=== PATIENT | female | born 1970 | race Caucasian/White ===

== ENCOUNTER 2020-04-19 17:45 | Outpatient (REF) | payer OTHER, SELFPAY ==
[2020-04-25 21:02] LABS: HPV mRNA E6/E7 Not Detected (Not Detected)
== END 2020-04-19 17:46 | disposition home or self-care (01) ==
LOC: HO.LNP 17:45
PROVIDERS: Visit Provider Advanced Practice Midwife
DX: Z01.419 Encounter for gynecological examination (general) (routine) without abnormal findings (principal); Z11.51 Encounter for screening for human papillomavirus (HPV); R23.2 Flushing
CPT/HCPCS: 87624; 87625; 88142

== ENCOUNTER 2020-05-26 08:35 | Outpatient (REF) | payer OTHER, SELFPAY ==
[2020-05-28 19:09] LABS: Follicle Stimulating Hormone 25.3 mIU/mL
== END 2020-05-26 08:36 | disposition home or self-care (01) ==
LOC: HO.LAB 08:35
PROVIDERS: PCP Internal Medicine; Visit Provider Advanced Practice Midwife
DX: R23.2 Flushing (principal)
CPT/HCPCS: 83001

== ENCOUNTER 2020-06-21 08:08 | Outpatient (REF) | payer OTHER, SELFPAY ==
[2020-06-21 11:41] LABS: Alanine Aminotransferase 19 U/L (0-31); Anion Gap 19 (12-20); Aspartate Amino Transferase 29 U/L (5-31); Blood Urea Nitrogen 7 mg/dL (9-16); Calcium 8.7 mg/dL (8.4-10.2); Carbon Dioxide 21 mmol/L (22-29); Chloride 104 mmol/L (96-108); Cholesterol 208 mg/dL; Estimated Glomerular Filt Rate > 60; Glucose Fasting 110 mg/dL (60-99); HDL Cholesterol 39 mg/dL; LDL Cholesterol Calculated 128 mg/dl; Potassium 4.8 mmol/l (3.3-5.1); Sodium 139 mmol/L (135-145); Triglycerides 206 mg/dL
[2020-06-21 12:02] LABS: Free T4 (Free Thyroxine) 1.18 ng/dL (0.71-1.85); Thyroid Stimulating Hormone 0.08 uIU/mL (0.32-4.0)
== END 2020-06-21 08:09 | disposition home or self-care (01) ==
LOC: HO.HMGCLDS 08:08
PROVIDERS: PCP Internal Medicine; Visit Provider Internal Medicine
DX: E03.9 Hypothyroidism, unspecified (principal); E66.01 Morbid (severe) obesity due to excess calories; E78.5 Hyperlipidemia, unspecified; Z00.01 Encounter for general adult medical examination with abnormal findings; I10 Essential (primary) hypertension
CPT/HCPCS: 80048; 80061; 84439; 84443; 84450; 84460

== ENCOUNTER 2020-06-25 15:36 | Outpatient (REF) | payer OTHER, SELFPAY ==
--- NOTE | 2020-06-25 | MM_ITS ---
EXAMINATION: MM SCREENING DIGITAL BREAST TOMOSYNTHESIS, BILATERAL CLINICAL INFORMATION: Screening. Asymptomatic. The lifetime risk of breast cancer based on the Tyrer-Cuzick Model is 7%. COMPARISON: Mammography: 01/21/2019, 12/15/2017 TECHNIQUE: Digital breast tomosynthesis is performed in both the craniocaudal and mediolateral oblique views along with computer-aided detection (CAD). Synthesized 2D images are generated from the tomosynthesis. Additional right exaggerated CC and bilateral MLO views are provided. FINDINGS: The breasts are almost entirely fatty (ACR BI-RADS breast composition Category a). There are no significant masses, abnormal calcifications, or other abnormalities. Background stromal and fibroglandular densities are similar to prior studies. No significant changes. MM/MM tomosynthesis screening BI IMPRESSION: No mammographic evidence of malignancy. ASSESSMENT: BI-RADS 1: Negative RECOMMENDATION: Routine annual mammography screening. This patient's information was entered into a reminder system with a target due date for their next mammogram.
== END 2020-06-25 15:37 | disposition home or self-care (01) ==
LOC: HO.MAMMO 15:36
PROVIDERS: PCP Internal Medicine; Visit Provider Internal Medicine
DX: Z12.31 Encounter for screening mammogram for malignant neoplasm of breast (principal)
CPT/HCPCS: 77063; 77067

== ENCOUNTER 2021-01-16 07:56 | Outpatient (REF) | payer OTHER, SELFPAY ==
[2021-01-16 12:17] LABS: Alanine Aminotransferase 10 U/L (0-31); Aspartate Amino Transferase 13 U/L (5-31); Cholesterol 171 mg/dL; Glucose Fasting 140 mg/dL (60-99); HDL Cholesterol 34 mg/dL; LDL Cholesterol Calculated 87 mg/dl; Triglycerides 252 mg/dL
[2021-01-16 12:42] LABS: Free T4 (Free Thyroxine) 1.26 ng/dL (0.71-1.85); Thyroid Stimulating Hormone 0.01 uIU/mL (0.32-4.0)
== END 2021-01-16 07:57 | disposition home or self-care (01) ==
LOC: HO.HMGCLDS 07:56
PROVIDERS: PCP Internal Medicine; Visit Provider Internal Medicine
DX: E03.9 Hypothyroidism, unspecified (principal); E66.01 Morbid (severe) obesity due to excess calories; E78.5 Hyperlipidemia, unspecified; R73.01 Impaired fasting glucose
CPT/HCPCS: 36415; 80061; 82947; 84439; 84443; 84450; 84460

== ENCOUNTER 2021-03-05 11:47 | Outpatient (REF) | payer OTHER, SELFPAY ==
[2021-03-05 14:03] LABS: Estimated Average Glucose 131 mg/dL; Hemoglobin A1c % 6.2 %
[2021-03-05 14:24] LABS: Glucose Fasting 76 mg/dL (60-99)
== END 2021-03-05 11:48 | disposition home or self-care (01) ==
LOC: HO.HMGCLDS 11:47
PROVIDERS: PCP Internal Medicine; Visit Provider Internal Medicine
DX: E66.01 Morbid (severe) obesity due to excess calories (principal); R73.01 Impaired fasting glucose
CPT/HCPCS: 36415; 82947; 83036

== ENCOUNTER → 2021-04-26 07:58 | Outpatient (BNVA) | payer OTHER, SELFPAY | PROVIDERS: PCP Internal Medicine; Visit Provider Obstetrics & Gynecology ==

== ENCOUNTER 2021-05-13 08:12 | Outpatient (REF) | payer OTHER, SELFPAY ==
[2021-05-13 14:38] LABS: CT PCR NOT DETECTED (Not Detect.); NG PCR NOT DETECTED (Not Detect.)
== END 2021-05-13 08:13 | disposition home or self-care (01) ==
LOC: HO.LAB 08:12
PROVIDERS: PCP Internal Medicine; Visit Provider Obstetrics & Gynecology
DX: Z30.09 Encounter for other general counseling and advice on contraception (principal)
CPT/HCPCS: 87491; 87591

== ENCOUNTER → 2021-05-23 08:25 | Outpatient (BNVA) | payer OTHER, SELFPAY | PROVIDERS: PCP Internal Medicine; Visit Provider Obstetrics & Gynecology ==

== ENCOUNTER → 2021-06-20 08:26 | Outpatient (BNVA) | payer OTHER, SELFPAY | PROVIDERS: PCP Internal Medicine; Visit Provider Obstetrics & Gynecology ==

== ENCOUNTER 2021-07-26 15:43 | Outpatient (REF) | payer OTHER, SELFPAY ==
--- NOTE | ~2021-07-26 | MM_ITS ---
EXAMINATION: MM SCREENING DIGITAL BREAST TOMOSYNTHESIS, BILATERAL CLINICAL INFORMATION: Screening. Asymptomatic. The lifetime risk of breast cancer based on the Tyrer-Cuzick Model is 7%. COMPARISON: Mammography: 06/25/2020, 01/21/2019, 12/15/2017 TECHNIQUE: Digital breast tomosynthesis is performed in both the craniocaudal and mediolateral oblique views along with computer-aided detection (CAD). Synthesized 2D images are generated from the tomosynthesis. FINDINGS: The breasts are almost entirely fatty (ACR BI-RADS breast composition Category a). There are no significant masses, abnormal calcifications, or other abnormalities. Background fibroglandular and stromal markings are similar to prior exams. No developing density. The axilla and skin contours are unremarkable. MM/MM tomosynthesis screening BI IMPRESSION: No mammographic evidence of malignancy. ASSESSMENT: BI-RADS 1: Negative RECOMMENDATION: Routine annual mammography screening. This patient's information was entered into a reminder system with a target due date for their next mammogram.
== END 2021-07-26 15:44 | disposition home or self-care (01) ==
LOC: HO.MAMMO 15:43
PROVIDERS: PCP Internal Medicine; Visit Provider Obstetrics & Gynecology
DX: Z12.31 Encounter for screening mammogram for malignant neoplasm of breast (principal)
CPT/HCPCS: 77063; 77067

== ENCOUNTER 2021-08-06 06:56 | Outpatient (REF) | payer OTHER, SELFPAY ==
[2021-08-06 08:12] LABS: Alanine Aminotransferase 20 U/L (0-31); Anion Gap 14 (12-20); Aspartate Amino Transferase 20 U/L (5-31); Blood Urea Nitrogen 8 mg/dL (9-16); Calcium 9.6 mg/dL (8.4-10.2); Carbon Dioxide 25 mmol/L (22-29); Chloride 107 mmol/L (96-108); Cholesterol 193 mg/dL; Estimated Glomerular Filt Rate > 60; Glucose Fasting 121 mg/dL (60-99); HDL Cholesterol 34 mg/dL; LDL Cholesterol Calculated 124 mg/dl; Potassium 4.2 mmol/L (3.3-5.1); Sodium 142 mmol/L (135-145); Triglycerides 177 mg/dL
[2021-08-06 08:36] LABS: Free T4 (Free Thyroxine) 0.87 ng/dL (0.71-1.85); Thyroid Stimulating Hormone 0.32 uIU/mL (0.32-4.0)
[2021-08-06 08:47] LABS: Estimated Average Glucose 134 mg/dL; Hemoglobin A1C 150.7243 umol/L; Hemoglobin A1c % 6.3 %
== END 2021-08-06 06:57 | disposition home or self-care (01) ==
LOC: HO.LAB 06:56
PROVIDERS: PCP Internal Medicine; Visit Provider Internal Medicine
DX: E03.9 Hypothyroidism, unspecified (principal); E66.01 Morbid (severe) obesity due to excess calories; E78.2 Mixed hyperlipidemia; R73.01 Impaired fasting glucose; I10 Essential (primary) hypertension
CPT/HCPCS: 36415; 80048; 80061; 83036; 84439; 84443; 84450; 84460

== ENCOUNTER 2022-05-21 07:24 | Outpatient (REF) | payer OTHER, SELFPAY ==
[2022-05-21 08:33] LABS: Alanine Aminotransferase 20 U/L (0-31); Anion Gap 18 (12-20); Aspartate Amino Transferase 19 U/L (5-31); Blood Urea Nitrogen 7 mg/dL (9-16); Calcium 9.4 mg/dL (8.4-10.2); Carbon Dioxide 21 mmol/L (22-29); Chloride 104 mmol/L (96-108); Cholesterol 185 mg/dL; Estimated Glomerular Filt Rate > 60; Glucose Fasting 112 mg/dL (60-99); HDL Cholesterol 35 mg/dL; LDL Cholesterol Calculated 117 mg/dl; Potassium 4.1 mmol/L (3.3-5.1); Sodium 139 mmol/L (135-145); Triglycerides 166 mg/dL
[2022-05-21 08:55] LABS: Free T4 (Free Thyroxine) 1.02 ng/dL (0.71-1.85); Thyroid Stimulating Hormone 0.35 uIU/mL (0.32-4.0); Vitamin D 25-OH Total 34.5 ng/mL (>30)
== END 2022-05-21 07:25 | disposition home or self-care (01) ==
LOC: HO.LAB 07:24
PROVIDERS: PCP Internal Medicine; Visit Provider Internal Medicine
DX: Z00.01 Encounter for general adult medical examination with abnormal findings (principal); E66.01 Morbid (severe) obesity due to excess calories; E78.2 Mixed hyperlipidemia; R73.01 Impaired fasting glucose; E03.9 Hypothyroidism, unspecified
CPT/HCPCS: 36415; 80048; 80061; 82306; 84439; 84443; 84450; 84460

== ENCOUNTER 2022-08-01 15:45 | Outpatient (REF) | payer OTHER, SELFPAY ==
--- NOTE | ~2022-08-01 | MM_ITS ---
EXAMINATION: MM SCREENING DIGITAL BREAST TOMOSYNTHESIS, BILATERAL CLINICAL INFORMATION: Screening. Asymptomatic. The lifetime risk of breast cancer based on the Tyrer-Cuzick Model is 7%. COMPARISON: Mammography: 07/26/2021, 06/25/2020, 01/21/2019 TECHNIQUE: Digital breast tomosynthesis is performed in both the craniocaudal and mediolateral oblique views along with computer-aided detection (CAD). Synthesized 2D images are generated from the tomosynthesis. Additional left MLO view is provided. FINDINGS: The breasts are almost entirely fatty (ACR BI-RADS breast composition Category a). Background stromal markings are stable. No developing density or architectural abnormality. There are no significant masses, abnormal calcifications, or other abnormalities. The axilla and skin contours are unremarkable. MM/MM tomosynthesis screening BI IMPRESSION: No mammographic evidence of malignancy. ASSESSMENT: BI-RADS 1: Negative RECOMMENDATION: Routine annual mammography screening. This patient's information was entered into a reminder system with a target due date for their next mammogram.
== END 2022-08-01 15:46 | disposition home or self-care (01) ==
LOC: HO.MAMMO 15:45
PROVIDERS: PCP Internal Medicine; Visit Provider Internal Medicine
DX: Z12.31 Encounter for screening mammogram for malignant neoplasm of breast (principal)
CPT/HCPCS: 77063; 77067

== ENCOUNTER → 2022-08-25 14:44 | Outpatient (BNVA) | payer OTHER, SELFPAY | PROVIDERS: PCP Internal Medicine; Visit Provider Nurse Practitioner Family | DX: Z13.89 Encounter for screening for other disorder (principal) ==

== ENCOUNTER 2022-10-28 09:22 | Outpatient (REF) | payer OTHER, SELFPAY ==
[2022-10-28 11:19] LABS: Alanine Aminotransferase 24 U/L (0-31); Anion Gap 14 (12-20); Aspartate Amino Transferase 19 U/L (5-31); Blood Urea Nitrogen 6 mg/dL (9-16); Calcium 9.3 mg/dL (8.4-10.2); Carbon Dioxide 24 mmol/L (22-29); Chloride 109 mmol/L (96-108); Cholesterol 185 mg/dL; Estimated Glomerular Filt Rate > 60; Glucose Fasting 113 mg/dL (60-99); HDL Cholesterol 31 mg/dL; LDL Cholesterol Calculated 108 mg/dl; Potassium 4.2 mmol/L (3.3-5.1); Sodium 143 mmol/L (135-145); Triglycerides 232 mg/dL
[2022-10-28 11:35] LABS: Estimated Average Glucose 143 mg/dL; Hemoglobin A1C 164.1739 umol/L; Hemoglobin A1c % 6.6 %
[2022-10-28 11:39] LABS: Free T4 (Free Thyroxine) 1.31 ng/dL (0.71-1.85); Thyroid Stimulating Hormone < 0.01 uIU/mL (0.32-4.0); Vitamin D 25-OH Total 40.2 ng/mL (>30)
== END 2022-10-28 09:23 | disposition home or self-care (01) ==
LOC: HO.LAB 09:22
PROVIDERS: PCP Internal Medicine; Visit Provider Internal Medicine
DX: E66.01 Morbid (severe) obesity due to excess calories (principal); E78.2 Mixed hyperlipidemia; R73.01 Impaired fasting glucose; E03.9 Hypothyroidism, unspecified
CPT/HCPCS: 36415; 80048; 80061; 82306; 83036; 84439; 84443; 84450; 84460

== ENCOUNTER 2022-11-03 13:04 | Outpatient (AMB) | payer OTHER, SELFPAY ==
--- NOTE | 2022-11-03 13:25 | A.OFFPC_ITS ---
Vital Signs 11/03/22 13:32 Height 4 ft 11 in Weight 216 lb 6 oz BMI 43.7 BP 126/90 H Blood Pressure Location Lt brachial Position Sitting Pulse 86 Pulse Source Pulse Oximeter Pulse Oximetry (%) 99 Oxygen Delivery Method Room Air Intake Visit Reasons: 6 month follow up Intake Note: Pt is here today for her 6 month f/u Allergies penicillin V Allergy (Intermediate, Verified 06/11/23 13:18) hives Sulfa (Sulfonamide Antibiotics) Allergy (Intermediate, Verified 06/11/23 13:18) hives Medication List - Last Reconciled 11/03/22 by Lizeth Andrew MD bisacodyl (Dulcolax (bisacodyl)) 10 mg (2 x 5 mg) PO ONCE 1 day cholecalciferol (vitamin D3) 600 units PO DAILY levonorgestrel (Mirena) intrauterine levothyroxine 100 mcg PO QAM loratadine (Claritin) 10 mg PO DAILY ziqnblla-iwp-cgth-FA-lutein 8 mg iron-400 mcg-300 mcg (Multivitamin Women 50 Plus) 1 tab PO DAILY omeprazole 20 mg PO DAILY polyethylene glycol 3350 (Miralax) 238 grams PO ONCE simvastatin 40 mg PO BEDTIME Tobacco use date assessed: 11/03/22 HPI 6 month follow up HPI Details 52-year-old lady with dyslipidemia hypot hyroidism, allergic rhinitis, here today for her follow-up. She has been feeling well, with no complaints at present time except for occasional nasal congestion for which she takes loratadine as needed. She will be going on a cruise later on this month and is requesting a prescription for the transderm scopolamine patch to use as needed for motion sickness. [facility] Medical History Rhinitis Mixed dyslipidemia Impaired fasting glucose Encounter for well woman exam with routine gynecological exam Rosacea Morbid obesity Hypothyroidism (acquired) GERD (gastroesophageal reflux disease) Surgical History Hx of colonoscopy Hx of endoscopy Family History Mother Diabetes Paternal Grandfather Brain cancer Paternal Grandmother Lung cancer Son Asthma Social History Housing: House Alcohol intake: current Patient Tobacco Use Status: Former Tobacco user Tobacco use type: Cigarette e-Cigarette/Vaping Use: Never Used service: No Current occupational status: employed Sexual orientation: Straight/Heterosexual Gender identity: Female Cognitive needs: No Hearing needs: No Vision needs: No Female Reproductive History Menstrual Age of Menarche: 12 Questionnaire PHQ-9 Over the last 2 weeks, how often have you been bothered by any of the following problems? 1. Little interest or pleasure in doing things: not at all 2. Feeling down, depressed, or hopeless: not at all 3. Trouble falling or staying asleep, or sleeping too much: not at all 4. Feeling tired or having little energy: several days 5. Poor appetite or overeating: not at all 6. Feeling bad about yourself - or that you are a failure or have let yourself or your family down: not at all 7. Trouble concentrating on things, such as reading the newspaper or watching television: not at all 8. Moving or speaking so slowly that other people could have noticed. Or the opposite - being so fidgety or restless that you have been moving around a lot more than usual: not at all 9. Thoughts that you would be better off or of hurting yourself in some way: not at all Total score: 1 Depression Screening Interpretation: Negative 23122 - PHQ-9 Billing: Yes Source: Developed by Drs. Stanislav Rodriguez, Em Figueroa, Moreno Sawant and colleagues, with an educational letty from [employer]. Thrive Questionnaire Declines Thrive assessment: No Date Thrive assessed: 11/03/22 I am a: Patient What is your living situation today?: I have a steady place to live Within the past 12 months, did the food you bought not last and you didn't have the money to get more?: Never true Within the past 12 months, did you worry whether your food would run out before you got money to buy more?: Never true Do you have trouble paying for medicines?: No Do you have trouble getting transportation to medical appointments?: No Do you have trouble paying your heating and electricity bill?: No Do you have trouble taking care of your child, family member or friend?: No Do you have trouble with day-to-day activities such as bathing, preparing meals, shopping, managing finances, etc.?: No Are you currently unemployed and looking for a job?: No Are you interested in more education?: No AUDIT C Alcohol Use Questionnaire (AUDIT-C) 1. How often do you have a drink containing alcohol?: Monthly or less 2. How many drinks containing alcohol do you have on a typical day when you are drinking?: 1 or 2 3. How often do you have six or more drinks on one occasion?: Never Total Score: 1 REYNALDO-7 AMB Questionnaire REYNALDO-7 Date REYNALDO - 7 assessed: 11/03/22 Feeling nervous, anxious, or on edge: 0 = Not at all Not being able to stop or control worryin = Not at all Worrying too much about different things: 0 = Not at all Trouble relaxin = Not at all Being so restless that it is hard to sit still: 0 = Not at all Becoming easily annoyed or irritable: 1 = Several days Feeling afraid as if something awful might happen: 0 = Not at all Total REYNALDO-7 score (0-4 normal; 5-9 mild; 10-14 moderate; 15-21 severe): 1 Source: Developed by Drs. Stanislav Rodriguez, Em Figueroa, Moreno Sawant and colleagues, with an educational letty from [employer]. REYNALDO-7 Assessment Billing REYNALDO-7 Assessment Tool: REYNALDO-7 Assessment 33992 Review of Systems Const Denies body aches, Denies fatigue, Denies fever(s), Denies headache(s) and Denies weakness Eyes Details: Sees Dr. Azul Denies change in vision ENT Denies headache(s), Denies nasal discharge and Denies sore throat Card Denies chest pain, Denies lightheadedness, Denies palpitations and Denies dyspnea Resp Denies chest congestion, Denies cough, Denies dyspnea and Denies wheezing GI Denies abdominal pain, Denies change in bowel habits and Denies heartburn Details: Follows with [facility] for her routine Pap and pelvic exam Denies urinary frequency, Denies dysuria and Denies urinary urgency Musc Reports no additional complaints Skin/Breast Denies lesions and Denies rash Neuro Denies headache(s) and Denies weakness Psych Reports as per HPI Endo Denies fatigue, Denies polydipsia, Denies polyuria and Denies palpitations Abundio/Lymph Denies easy bruising Aller/Immun Denies seasonal rhinorrhea and Denies wheezing Physical exam (Primary Care) Vital Signs: Last Vital Signs Pulse 86 11/03/22 13:32 BP 126/90 H 11/03/22 13:32 Pulse Ox 99 11/03/22 13:32 Oxygen Delivery Method Room Air 11/03/22 13:32 BMI result Body Mass Index 43.7 BMI Assessment/Plan discussion: High BMI High, discussed plan: lifestyle, weight reduction, dietary and physical activity Tobacco/Smoking Status: Tobacco use Status Tobacco use date assessed 11/03/22 11/03/22 13:36 Patient Tobacco Use Status Never used Tobacco 11/03/22 13:27 e-Cigarette/Vaping Use Never Used 11/03/22 13:27 PHQ-9: PHQ-9 Score PHQ-9: Total score 1 11/03/22 14:26 Depression Screening Interpretation: Negative Thrive Assessment: Date of Thrive Assessment Date Thrive assessed 11/03/22 11/03/22 13:36 Const General: comfortable and no acute distress Nutritional Appearance: obese morbidly obese Orientation/consciousness: patient oriented x3 HENMT Other: Moist oral mucosa, normal oropharynx, no nasal discharge Eyes General: appearance normal, both eyes and all related structures Neck Other: Supple, no lymphadenopathy, thyroid gland nonpalpable Chest Other: Pendulous breasts, no mass palpated , no nipple discharge Resp Effort & Inspection: normal respiratory effort and able to speak in complete sentences Auscultation: clear to auscultation bilaterally Cardio Other: S1-S2 present regular rate and rhythm GI Palpation (GI): Soft to palpation, nontender, no guarding and no masses Auscultation: normal bowel sounds Skin General skin exam: no rashes or lesions noted Neuro General: patient oriented x3, gait normal, moves all extremities, Normal light touch and pain sensation, no focal motor deficits and CN's II-XI intact bilaterally Extrem General: Yes full ROM, Yes no joint enlargement, Yes no pedal edema, Yes no calf tenderness and Yes normal gait Psych Appearance: grossly normal and well kempt Mental Status: mental status grossly normal Speech and movement: Normal speech and movement present Affect: normal affect Attitude: cooperative Thought process: Normal thought process present Immunizations pneumoc 20-jamaal conj-dip cr(PF) 0.5 mL IM syringe Performing Provider: Lizeth Andrew MD Performing Location: [facility] [place] [facility] Administered by: Coty Kruse CMA on 11/03/22 14:27 Dose Route Admin Location Dispensed Lot Number Expiration Date NDC Arabic Linguist 0.5 mL IM Left Deltoid 0.5 mL [id number] 02/10/24 6797-7978-21 Tour Desk/Widbook VIS Given Date VIS Provided VIS Publication Date 11/03/22 Single Vaccine 21 Eligibility Eligibility Date Funding Source Not VFC Eligible 11/03/22 Private Results Reviewed Results Reviewed: RUN: 11/03/22 1358 PAGE 1 [facility] [address] [place] [id number] Cable Rigger: Wesly France M.D. Specimen Inquiry Name: Gayle Brownlee Age/Sex: 51/F : 1970 Unit#: [id number] Attend Dr: Lizeth Andrew MD Re10/28/22 Status: DEP REF [facility] Disch: SPEC : [id number] ALEX: 10/28/22 STATUS: COMP REQ : [id number] RECD: 10/28/[address]: Lizeth Andrew MD COMP: 10/28/221139 ENTERED: 10/28/[address]: ORDERED: Met Prof Fast, AST, ALT, Lipid Panel, Vitamin D 25-OH, Free T4, TSH Test Result Flag Reference Site Sodium 143 135-145 mmol/L Potassium 4.2 3.3-5.1 mmol/L CL 109 H 96-108 mmol/L CO2 24 22-29 mmol/L Gap 14 12-20 BUN 6 L 9-16 mg/dL Creat 0.62 0.5-1.4 mg/dL EGFR > 60 NOTE: For -[place] individuals, multiply the result by 1.210. Chronic Kidney Disease: Estimated GFR < 60 mL/mi n/1.73m2 Severe Kidney Disease: Estimated GFR < 15 mL/min/1.73m2 FBS 113 H 60-99 mg/dL A fasting glucose from 100-125 mg/dl is considered impaired (pre-diabetes). CA 9.3 8.4-10.2 mg/dL AST (GOT) 19 5-31 U/L ALT (GPT) 24 0-31 U/L Triglyceride 232 mg/dL Desirable Triglyceride: less than 150 mg/dL Borderline High Triglyceride 150-199 mg/dL High Triglyceride: 200-499 mg/dL Very High Triglyceride: greater than or equal to 5OO mg/dL Chol 185 mg/dL Desirable Cholesterol: less than 200 mg/dL Borderline High Cholesterol: 200-239 mg/dL High Cholesterol: greater than 239 mg/dL LDL Calculated 108 mg/dl Desirable LDL: less than 100 mg/dL Near Optimal/Above Optimal LDL: 110-129 mg/dL Borderline High LDL: 130-159 mg/dL High LDL: 160-189 mg/dL Very High LDL: greater than or equal to 190 mg/dL HDL 31 mg/dL Desirable HDL: greater than 40 mg/dL Note: This HDL assay may give artificially low results in patients with liver disease. Vit D 25-OH Tot 40.2 >30 ng/mL Health Based Reference Values* < 20 ng/mL Deficient 20-30 ng/mL Insufficient > 30 ng/mL Sufficient *Heron BERG. N Engl J Med. 2007;357:266-280 Care must be taken in interpreting Vitamin D results from different laboratories and methodologies. Published data demonstrated that results from patients undergoing hemodialysis may show a negative bias when tested with various automated 25-OH vitamin D assays when compared to LC-MS/MS. When testing samples from patients whose predominant form of Vitamin D is Vitamin D2, such as patients receiving Vitamin D2 supplementation, results that are subtherapeutic should be confirmed with another method such as LC-MS/MS. Free T4 1.31 0.71-1.85 ng/dL TSH 3rd Gen. < 0.01 L 0.32-4.0 uIU/mL Laboratory Tests 10/28/22 09:39 Estimat Average Glucose 143 Hemoglobin A1c % 6.6 Assessment and Plan Assessment & Plan (1) Mixed dyslipidemia: Code(s): E78.2 - Mixed hyperlipidemia Plan: Reviewed recent fasting lipid profile with patient with levels at goal except for elevated triglycerides. . Continue with simvastatin 40 mg at bedtime , in addition to adherence to low-cholesterol diet and regular exercise, at least 30 minutes 3 to 4 times a week. Advised patient to make healthy food choices, eat more fruits, vegetables, whole grains, wild caught fish and low-fat dairy. Limit amount of meat and fried or fatty food products, as well as processed foods and fast foods. Follow-up scheduled with repeat fasting lipid panel in 6 months. (2) Impaired fasting glucose: Code(s): R73.01 - Impaired fasting glucose Plan: Your fasting blood sugars was elevated above 100 mg/dL. Impaired glucose metabolism O2 at risk for developing diabetes mellitus type 2, as well as heart attack and stroke later on. Lifestyle changes at just weight loss, healthy eating habits, and regular exercise are important, and can prevent the progression to diabetes (3) Morbid obesity: Code(s): E66.01 - Morbid (severe) obesity due to excess calories Plan: Discussed need to increase activity and recommended focusing on improving your health instead of dieting. : Eat Mediterranean diet, limit foods high in fat, sugar, and calories, eat slowly, pay attention to portion sizes, plan your meals ahead of time, start regular physical activity 150 minutes of moderate intensity exercise or 90 minutes/week of vigorous exercise and increase water intake. (4) Hypothyroidism (acquired): Code(s): E03.9 - Hypothyroidism, unspecified Plan: Thyroid levels are within normal limits, continued on current dose of levothyroxine at 100 mcg daily in a.m.. Recheck thyroid levels again in 6 months (5) Rhinitis: Code(s): J31.0 - Chronic rhinitis Qualifiers: Rhinitis type: unspecified Qualified Code(s): J31.0 - Chronic rhinitis Plan: Continued on loratadine 10 mg daily (6) Hx of motion sickness: Code(s): Z87.898 - Personal history of other specified conditions Plan: Prescription sent for scopolamine patch, to use as directed Orders: Orders Alanine Aminotransferase 6 Months E78.2 - Mixed hyperlipidemia, R73.01 - Impaired fasting glucose, E66.01 - Morbid (severe) obesity due to excess calories, E03.9 - Hypothyroidism, unspecified Microalbumin, Random (w Creat) 6 Months E78.2 - Mixed hyperlipidemia, R73.01 - Impaired fasting glucose, E66.01 - Morbid (severe) obesity due to excess calories, E03.9 - Hypothyroidism, unspecified Basic Metabolic Panel Fasting 6 Months E78.2 - Mixed hyperlipidemia, R73.01 - Impaired fasting glucose, E66.01 - Morbid (severe) obesity due to excess calories, E03.9 - Hypothyroidism, unspecified Vitamin D 25-OH Total 6 Months E78.2 - Mixed hyperlipidemia, R73.01 - Impaired fasting glucose, E66.01 - Morbid (severe) obesity due to excess calories, E03.9 - Hypothyroidism, unspecified Aspartate Amino Transferase 6 Months E78.2 - Mixed hyperlipidemia, R73.01 - Impaired fasting glucose, E66.01 - Morbid (severe) obesity due to excess calories, E03.9 - Hypothyroidism, unspecified Hemoglobin A1c 6 Months E78.2 - Mixed hyperlipidemia, R73.01 - Impaired fasting glucose, E66.01 - Morbid (severe) obesity due to excess calories, E03.9 - Hypothyroidism, unspecified Lipid Panel 6 Months E78.2 - Mixed hyperlipidemia, R73.01 - Impaired fasting glucose, E66.01 - Morbid (severe) obesity due to excess calories, E03.9 - Hypothyroidism, unspecified Thyroid Stimulating Hormone 6 Months E78.2 - Mixed hyperlipidemia, R73.01 - Impaired fasting glucose, E66.01 - Morbid (severe) obesity due to excess calories, E03.9 - Hypothyroidism, unspecified Free T4 (Free Thyroxine) 6 Months E03.9 - Hypothyroidism, unspecified, E78.2 - Mixed hyperlipidemia, R73.01 - Impaired fasting glucose, E66.01 - Morbid (severe) obesity due to excess calories Pneumococcal 20 Immunization 11/03/22 Z23 - Encounter for immunization Medications: Refilled scopolamine base 1 patch transdermal Q3D PRN 4 ea 0RF nausea and vomiting Coding Level of Care Code Est Pt Level 4 (15105) Diagnoses Mixed dyslipidemia E78.2 Impaired fasting glucose R73.01 Morbid obesity E66.01 Hypothyroidism (acquired) E03.9 Rhinitis, unspecified type J31.0 Rhinitis type: unspecified Hx of motion sickness Z87.898 Additional Codes REYNALDO-7 Assessment Billing - REYNALDO-7 Assessment Tool: REYNALDO-7 Assessment [id number] ([id number])
[2022-11-03 13:32] VITALS: BP 126/90; PULSE 86; O2SAT 99; BMI 43.7
== END 2022-11-03 14:27 | disposition home or self-care (01) ==
LOC: HO.HMGC 13:04
PROVIDERS: PCP Internal Medicine; Visit Provider Internal Medicine
DX: E78.2 Mixed hyperlipidemia (principal); E66.01 Morbid (severe) obesity due to excess calories; Z68.41 Body mass index [BMI] 40.0-44.9, adult; Z23 Encounter for immunization; R73.01 Impaired fasting glucose; E03.9 Hypothyroidism, unspecified; J31.0 Chronic rhinitis; Z87.898 Personal history of other specified conditions
CPT/HCPCS: 90471; 90677; 99214

== ENCOUNTER 2023-03-09 12:10 | Day surgery (SDC) | payer OTHER, SELFPAY ==
[2023-03-05 10:50] VITALS: BMI 43.6
--- NOTE | 2023-03-06 11:12 | HO.ANESPROP2 ---
Documented by User: Melba Allen NP 03/06/23 11:14 HPI - Anesthesia Eval Consult details Narrative: 52yo F for Colonoscopy PMFSH Active Problems Active Problems: All Active Problems (Updated 11/03/22 @ 14:20 by Lizeth Andrew MD) Rhinitis (Acute) Mixed dyslipidemia (Acute) Impaired fasting glucose (Acute) Morbid obesity (Acute) Hypothyroidism (acquired) (Acute) Annual visit for general adult medical examination with abnormal findings (Acute) Hot flashes (Acute) Past Medical History Medical History Encounter for well woman exam with routine gynecological exam GERD (gastroesophageal reflux disease) Hypothyroidism (acquired) Impaired fasting glucose Mixed dyslipidemia Morbid obesity Rhinitis Rosacea Family History Family History Mother Diabetes Paternal Grandfather Brain cancer Paternal Grandmother Lung cancer Son Asthma Surgical History Surgical History Hx of endoscopy Social History Social History Housing: House Alcohol intake: current Patient Tobacco Use Status: Former Tobacco user Tobacco use type: Cigarette e-Cigarette/Vaping Use: Never Used Use of substances other than those prescribed or required for medical reasons: No Are you DNR?: No Advance Directives: No Advance Directives Information Provided: Yes service: No Current occupational status: employed Sexual orientation: Straight/Heterosexual Gender identity: Female Cognitive needs: No Hearing needs: No Vision needs: No Meds Allergies Allergy/AdvReac Type Severity Reaction Status Date / Time penicillin V Allergy Intermediate hives Verified 03/05/23 10:49 Sulfa (Sulfonamide Allergy Intermediate hives Verified 03/05/23 10:49 Antibiotics) Home Medications Medication Instructions Recorded Confirmed Last Taken Type loratadine 10 mg tablet (Claritin) 10 mg PO DAILY 04/19/20 03/05/23 Unknown History cholecalciferol (vitamin D3) 25 600 unit PO DAILY 08/12/21 03/05/23 Unknown History mcg (1,000 unit) tablet levonorgestrel 21 mcg/24 hours (8 intrauterine 08/12/21 11/03/22 Unknown History yrs) 52 mg intrauterine device (Mirena) leolkkug-xsvs-nbye 8 mg-folic 400 1 tab PO DAILY 06/09/22 03/05/23 Unknown History mcg-K 50 mcg-lutein 300 mcg tablet (Multivitamin Women 50 Plus) Exam Exam Date and Time: March 06, 2023 1112 Height,Weight and Vital Signs: Height 4 ft 11 in Weight 97.976 kg Pertinent Lab Results Pertinent Lab Results: Laboratory Tests 10/28/22 09:39 Sodium 143 Potassium 4.2 Chloride 109 H Carbon Dioxide 24 BUN 6 L Creatinine 0.62 Assessment and Plan Assessment Anesthesia Assessment: Chart Reviewed Documented by User: Melinda Noble MD 03/09/23 13:39 PMFSH Active Problems Active Problems: All Active Problems (Updated 03/09/23 @ 13:36 by Melinda Noble MD) Rhinitis (Acute) Mixed dyslipidemia (Acute) Impaired fasting glucose (Acute) Morbid obesity (Acute)BMI 43.6 Hypothyroidism (acquired) (Acute) Annual visit for general adult medical examination with abnormal findings (Acute) Hot flashes (Acute) Past Medical History Medical History Encounter for well woman exam with routine gynecological exam GERD (gastroesophageal reflux disease) Hypothyroidism (acquired) Impaired fasting glucose Mixed dyslipidemia Morbid obesity Rhinitis Rosacea Family History Family History Mother Diabetes Paternal Grandfather Brain cancer Paternal Grandmother Lung cancer Son Asthma Surgical History Surgical History Hx of endoscopy Social History Social History Housing: House Alcohol intake: current Patient Tobacco Use Status: Former Tobacco user Tobacco use type: Cigarette e-Cigarette/Vaping Use: Never Used Use of substances other than those prescribed or required for medical reasons: No Are you DNR?: No Advance Directives: No Advance Directives Information Provided: Yes service: No Current occupational status: employed Sexual orientation: Straight/Heterosexual Gender identity: Female Cognitive needs: No Hearing needs: No Vision needs: No Meds Allergies Allergy/AdvReac Type Severity Reaction Status Date / Time penicillin V Allergy Intermediate hives Verified 03/05/23 10:49 Sulfa (Sulfonamide Allergy Intermediate hives Verified 03/05/23 10:49 Antibiotics) Home Medications Medication Instructions Recorded Confirmed Last Taken Type loratadine 10 mg tablet (Claritin) 10 mg PO DAILY 04/19/20 03/05/23 Unknown History cholecalciferol (vitamin D3) 25 600 unit PO DAILY 08/12/21 03/05/23 Unknown History mcg (1,000 unit) tablet levonorgestrel 21 mcg/24 hours (8 intrauterine 08/12/21 11/03/22 Unknown History yrs) 52 mg intrauterine device (Mirena) nfgyxnyt-pvxf-hapr 8 mg-folic 400 1 tab PO DAILY 06/09/22 03/05/23 Unknown History mcg-K 50 mcg-lutein 300 mcg tablet (Multivitamin Women 50 Plus)
[2023-03-09 12:26] VITALS: BP 169/117; PULSE 111; RESP 16; TEMP 36.7; O2SAT 97
[2023-03-09 12:38] VITALS: BP 143/91; PULSE 106
[2023-03-09] MEDS: Lactated Ringers 1,000 ML 100 ML IVCONT (12:44)
--- NOTE | 2023-03-09 14:08 | MHC.SHP ---
Pre-Procedural Eval Section A Date of Service: 03/09/23 The patient is an INPATIENT: No The History & Physical has been completed within 30 days and I have reviewed it.: No Section B Chief Complaint: screening Relevant Family History (Specify if Yes): No Relevant Social History: None Present Medications: see Short Stay Collaborative assessment Medical History: Significant History (GERD (gastroesophageal reflux disease) Hypothyroidism (acquired) Impaired fasting glucose Mixed dyslipidemia Morbid obesity Rosacea) History of Previous Operations: Relevant previous surgery/procedure and date(s) (Hx of endoscopy) Allergies: Allergies Allergy/AdvReac Type Severity Reaction Status Date / Time penicillin V Allergy Intermediate hives Verified 03/05/23 10:49 Sulfa (Sulfonamide Allergy Intermediate hives Verified 03/05/23 10:49 Antibiotics) Review of Systems Sugical H&P ROS: Negative: Constitution, Cardiovascular, Respiratory and Gastrointestinal Exam Surgical H&P Exam: Normal: Heart, Normal: Lungs, Normal: Extremities and Normal: Abdomen Plan Diagnosis/Plan: Unchanged I have reviewed the history and physical and performed a pertinent physical examination on my patient. No changes have occurred unless specified. Time Spent With Patient Time: Total time managing care of this patient today ____ minutes.
--- NOTE | 2023-03-09 14:10 | P.OP_ITS ---
Operative Note Operative Note Date of Service: 03/09/23 Narrative: COLONOSCOPY TILL CECUM WITH BIOPSIES Pre-op diagnosis: Colon cancer screening Post-op diagnosis:? Colon polyps, diverticulosis, hemorrhoids, aphthoid ulcers in the right colon Endoscopist:? Dajuan Ocasio MD Anesthesia:?MAC Consent: Indications for the procedure and potential complications of bleeding, perforation, reaction to medications and missed diagnosis were discussed with the patient and informed consent was obtained. Instrument: Olympus PCF H 190 L variable stiffness pediatric colonoscope Monitoring: Vital signs and clinical assessment, intermittent blood pressure monitoring, continuous EKG monitoring, Pulse oximetry and Carbon Dioxide monitoring were done throughout the procedure. Please see anesthesia flowsheet. Colon withdrawl time was 22 minutes. Procedure: The patient was placed in the left lateral decubitis position and pre-procedure medications were administered. After a digital rectal examination of the ano-rectum, the video colonoscope was inserted into the rectum and advanced through the colon to the cecum. The colonoscope was slowly withdrawn in a retrograde panoramic fashion and the colon mucosa was carefully examined including a retroflexed view of the rectum. Findings and interventions are described below. Procedure Difficulty: Without difficulty Findings: Terminal Ileum: Distal 5 - 6 cms was examined and appeared normal Cecum: 2-3 mm aphthoid ulcers in the cecum and proximal AC - biopsies were obtained Ascending Colon: 2-3 mm aphthoid ulcers in the cecum and proximal AC - biopsies were obtained Transverse Colon: Normal Descending Colon: Normal Sigmoid Colon: A 2-3 mm diminutive appearing polyp in the distal sigmoid colon - removed with cold biopsy Moderate diverticulosis Rectum: A few 3-5 mm diminutive appearing polyps - one removed with a cold biopsy Ano-rectum: Moderate internal hemorrhoids Colon preparation: Good after some irrigation Impression and Post Procedure Diagnosis: Colonoscopy Findings: Two diminutive appearing polyps removed 2-3 mm aphthoid ulcers in the cecum and proximal AC - biopsies were obtained Moderate diverticulosis seen in the sigmoid colon Moderate hemorrhoids on retroflexed exam. Plan: Await pathology results Patient has an appointment on 03/23/23 in the GI Clinic with Priscilla Garner FNP- [facility]. Repeat Colonoscopy interval based on path results - in 5 years if polyps are adenomatous and 10 years if polyps are hyperplastic. Above findings were reviewed with the patient and colon polyps and diverticulosis handouts were given in the discharge area Patient denies any symptoms of abdominal pain or diarrhea or taking any NSAIDs recently.
[2023-03-09 14:56] VITALS: BP 108/71; PULSE 97; RESP 16; TEMP 36.3; O2SAT 95
[2023-03-09 15:11] VITALS: BP 108/81; PULSE 89; RESP 16; TEMP 36.3; O2SAT 98
[2023-03-09 15:26] VITALS: BP 110/80; PULSE 87; RESP 16; O2SAT 98
== END 2023-03-09 16:01 | disposition home or self-care (01) ==
PROVIDERS: PCP Internal Medicine; Visit Provider Internal Medicine Gastroenterology
PROC: 0DJD8ZZ Inspection of Lower Intestinal Tract, Via Natural or Artificial Opening Endoscopic (ICD-10-PCS; CPT 45378; principal; 2023-03-09 14:40)
DX: Z12.11 Encounter for screening for malignant neoplasm of colon (principal); K63.5 Polyp of colon; K62.1 Rectal polyp; K57.30 Diverticulosis of large intestine without perforation or abscess without bleeding; K64.8 Other hemorrhoids; K63.3 Ulcer of intestine; K21.9 Gastro-esophageal reflux disease without esophagitis; E03.9 Hypothyroidism, unspecified; E78.2 Mixed hyperlipidemia; R73.01 Impaired fasting glucose; E66.01 Morbid (severe) obesity due to excess calories; Z68.41 Body mass index [BMI] 40.0-44.9, adult; L71.9 Rosacea, unspecified; Z79.899 Other long term (current) drug therapy; Z88.0 Allergy status to penicillin; Z88.2 Allergy status to sulfonamides; Z87.891 Personal history of nicotine dependence
CPT/HCPCS: 45380; 88305; J2250

== ENCOUNTER → 2023-03-09 12:10 | Outpatient (BNV) | payer OTHER, SELFPAY | PROVIDERS: PCP Internal Medicine; Visit Provider Internal Medicine Gastroenterology | DX: Z12.11 Encounter for screening for malignant neoplasm of colon (principal); K63.5 Polyp of colon; K62.1 Rectal polyp; K57.30 Diverticulosis of large intestine without perforation or abscess without bleeding; K64.8 Other hemorrhoids | CPT/HCPCS: 45380 ==

== ENCOUNTER 2023-03-23 09:30 | Outpatient (AMB) | payer OTHER, SELFPAY ==
--- NOTE | 2023-03-23 09:43 | A.OFFVIS_ITS ---
Intake Vital Signs 03/23/23 09:46 Height 4 ft 11 in Weight 219 lb 9.286 oz BMI 44.3 BP 116/74 Blood Pressure Location Rt brachial Position Sitting Intake Visit Reasons: S/p colon- Amarjit Intake Note: Gayle presents to in office visit today in colonoscopy post op. Patient underwent colonoscopy on 03.09.23. PT CC: pt denies any other GI Issues Implementation Specialist Required: No Accompanied by: Self / Same As Patient Allergies penicillin V Allergy (Intermediate, Verified 03/23/23 09:47) hives Sulfa (Sulfonamide Antibiotics) Allergy (Intermediate, Verified 03/23/23 09:47) hives HPI S/p colon- Amarjit HPI Details LAST VISIT Colon cancer screening Patient denies any GI, cardiac or respiratory symptoms.? However patient does report that occasional acid reflux symptoms are suppressed with omeprazole. Denies any issues with anesthesia in the past.? Denies any history of sleep apnea.? No history infectious diseases in the past or present.? Not on any anticoagulation therapy.? No family or personal history of colon cancer or polyps.? Patient denies melena, hematochezia, unintentional weight loss or ribbon like stools.? Discussed at length the pre-procedure,? prep, diet & medications as well as what to expect prior, during and after the procedure.?? Stressed the importance of good bowel prep. ?Recommended the use of Vaseline or Calmoseptine OTC & baby wipes with bowel movements to promote comfort.? ?Patient verbalizes understanding and agrees to plan of care.? She was given the opportunity to ask questions and all questions answered.? We will see her after the procedure.? Plan Medications New bisacodyl (Dulcolax (bisacodyl)) take 2 tabs at noon the day before your colonoscopy 10 mg (2 x 5 mg) PO ONCE 2 tabs 0RF 1 day Z12.11 polyethylene glycol 3350 (Miralax) As directed by gastroenterology department at [facility] 238 grams PO ONCE 238 grams 0RF Z12.11 COLONOSCOPY Findings: Terminal Ileum: Distal 5 - 6 cms was examined and appeared normal Cecum: 2-3 mm aphthoid ulcers in the cecum and proximal AC - biopsies were obtained Ascending Colon: 2-3 mm aphthoid ulcers in the cecum and proximal AC - biopsies were obtained Transverse Colon: Normal Descending Colon: Normal Sigmoid Colon: A 2-3 mm diminutive appearing polyp in the distal sigmoid colon - removed with cold biopsy Moderate diverticulosis Rectum: A few 3-5 mm diminutive appearing polyps - one removed with a cold biopsy Ano-rectum: Moderate internal hemorrhoids Colon preparation: Good after some irrigation Impression and Post Procedure Diagnosis: Colonoscopy Findings: Two diminutive appearing polyps removed 2-3 mm aphthoid ulcers in the cecum and proximal AC - biopsies were obtained Moderate diverticulosis seen in the sigmoid colon Moderate hemorrhoids on retroflexed exam. Plan: Repeat Colonoscopy interval based on path results - in 5 years if polyps are adenomatous and 10 years if polyps are hyperplastic. Above findings were reviewed with the patient and colon polyps and diverticulosis handouts were given in the discharge area PATHOLOGY RESULTS Diagnosis A. Cecum, ulcer, biopsy: Colonic mucosa within normal limits; negative for active, chronic or microscopic colitis. B. Colon, left, biopsy: Colonic mucosa within normal limits; negative for active, chronic or microscopic colitis. C. Colon, sigmoid, polypectomy: Hyperplastic polyp. D. Rectum, polypectomy: Hyperplastic polyp. TODAY'S VISIT Patient is here today for follow-up and to discuss colonoscopy results. Patient denies any issues with the prep, anesthesia or procedure itself. Patient reports to be feeling well. Denies any melena, hematochezia, unintentional weight loss or ribbon like stools. Denies any dyspepsia, dysphagia or odynophagia. Patient reports that she has been feeling well denies any GI concerning symptoms. [facility] Medical History Rhinitis Mixed dyslipidemia Impaired fasting glucose Encounter for well woman exam with routine gynecological exam Rosacea Morbid obesity Hypothyroidism (acquired) GERD (gastroesophageal reflux disease) Surgical History Hx of colonoscopy Hx of endoscopy Family History Mother Diabetes Paternal Grandfather Brain cancer Paternal Grandmother Lung cancer Son Asthma Social History Housing: House Alcohol intake: current Patient Tobacco Use Status: Former Tobacco user Tobacco use type: Cigarette e-Cigarette/Vaping Use: Never Used service: No Current occupational status: employed Sexual orientation: Straight/Heterosexual Gender identity: Female Cognitive needs: No Hearing needs: No Vision needs: No Female Reproductive History Menstrual Age of Menarche: 12 Review of Systems Const Denies weight gain and Denies weight loss ENT Reports no additional complaints, Denies dysphagia and Denies odynophagia Card Reports no additional complaints Resp Reports no additional complaints GI Denies abdominal pain, Denies belching, Denies melena, Denies bloating, Denies change in bowel habits, Denies dysphagia, Denies excessive flatus, Denies dyspepsia, Denies heartburn, Denies diarrhea, Denies loose stools, Denies nausea, Denies odynophagia and Denies vomiting Musc Reports no additional complaints Neuro Reports no additional complaints Psych Reports no additional complaints Endo Reports no additional complaints Physical Exam Vital Signs: Last Vital Signs BP 116/74 03/23/23 09:46 BMI result Body Mass Index 44.3 Const General: healthy appearing, no acute distress and well developed Nutritional Appearance: obese Orientation/consciousness: patient oriented x3 HEENT Head: Yes normal to inspection, Yes normocephalic and Yes atraumatic Face and sinus: Yes normal facial exam Mouth: Normal oral and palatal mucosa present Throat: Yes posterior oropharynx normal, Yes tonsils normal and Yes uvula midline Eyes General: appearance normal, both eyes and all related structures Neck Neck: Yes normal visual inspection, Yes full ROM and Yes trachea midline Thyroid: Thyroid normal Resp Effort & Inspection: normal respiratory effort, able to speak in complete sentences, no tracheal deviation and symmetric chest movement Auscultation: clear to auscultation bilaterally Cardio Rate: regular rate Heart sounds: S1 normal heart sound present and S2 normal heart sound present GI Inspection: Yes normal to inspection, No distended and Yes obesity Palpation (GI): Soft to palpation, not firm, nontender and No hepatosplenomegaly present Auscultation: normal bowel sounds General: Yes no CVA tenderness Back/Spine/Pelvis Back: no CVA tenderness Skin General skin exam: elasticity normal, turgor normal and dry skin Neuro General: patient oriented x3 Psych Appearance: grossly normal Mental Status: mental status grossly normal Assessment & Plan Assessment & Plan (1) Status post colonoscopy: Code(s): Z98.890 - Other specified postprocedural states Plan: Hyperplastic polyps found, moderate diverticulosis of the sigmoid colon. Colorectal screening in 10 years, sooner if clinically necessary. (2) Diverticulosis: Code(s): K57.90 - Diverticulosis of intestine, part unspecified, without perforation or abscess without bleeding Plan: Patient was found to have moderate diverticulosis of sigmoid colon. Patient was encouraged to increase fiber in her diet. List of food high in fiber given to patient. Patient will be seen on as needed basis. She is agreeable to this plan and verbalizes understanding of instructions. She was given the opportunity to ask questions and all questions answered. Thank you for allowing me to participate in her care Coding Level of Care Code Est Pt Level 3 (22237) Diagnoses Status post colonoscopy Z98.890 Diverticulosis K57.90 Time Spent (min) 25 Comment 15 minutes spent with patient and additional 10 minutes spent reviewing her records
[2023-03-23 09:46] VITALS: BP 116/74; BMI 44.3
== END 2023-03-23 10:16 | disposition home or self-care (01) ==
PROVIDERS: PCP Internal Medicine; Visit Provider Nurse Practitioner Family
DX: Z98.890 Other specified postprocedural states (principal); K57.90 Diverticulosis of intestine, part unspecified, without perforation or abscess without bleeding
CPT/HCPCS: 99213

== ENCOUNTER → 2023-03-23 09:30 | Outpatient (BNVA) | payer OTHER, SELFPAY | PROVIDERS: PCP Internal Medicine; Visit Provider Nurse Practitioner Family ==

== ENCOUNTER 2023-05-18 07:48 | Outpatient (AMB) | payer OTHER, SELFPAY ==
--- NOTE | 2023-05-18 07:53 | MHC.OFFVIS ---
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 No complaints. Last Pap/HPV was negative in 05/01 Last Mammogram was BI-RADS 1 in 08/04 Last Colonoscopy was done in 03/04, the recommendation was to repeat in 10 years [facility] Medical History Rhinitis Mixed dyslipidemia Impaired fasting glucose Encounter for well woman exam with routine gynecological exam Rosacea Morbid obesity Hypothyroidism (acquired) GERD (gastroesophageal reflux disease) Surgical History Hx of colonoscopy Hx of endoscopy Family History Mother Diabetes Paternal Grandfather Brain cancer Paternal Grandmother Lung cancer Son Asthma Social History Housing: House Alcohol intake: current Patient Tobacco Use Status: Former Tobacco user Tobacco use type: Cigarette e-Cigarette/Vaping Use: Never Used service: No Current occupational status: employed Sexual orientation: Straight/Heterosexual Gender identity: Female Cognitive needs: No Hearing needs: No Vision needs: No Female Reproductive History Menstrual Age of Menarche: 12 control method: progestin IUCD (Mirena 05/2021) Total pregnancies: 2 Full term: 2 Number of Living Children: 2 Date of last pap smear: 04/19/20 (neg pap and hpv) Date of Mammogram: 08/01/22 (Birad 1) Review of Systems Const All systems reviewed & are unremarkable except as noted in HPI and below Card Reports as per HPI Resp Reports as per HPI GI Reports as per HPI and Reports no additional complaints Reports as per HPI Physical Exam Vital Signs: Last Vital Signs BP 110/76 05/18/23 07:57 BMI result Body Mass Index 44.4 Const General: cooperative, healthy appearing and comfortable Chest Chest palpation & inspection: normal inspection of the chest and normal palpation of entire chest wall Breast/axilla inspection: normal inspection of the breasts and normal inspection of the axillae Breast/axilla palpation: normal palpation of the breasts, normal palpation of the axillae and no axillary lymphadenopathy Resp Effort & Inspection: normal respiratory effort Auscultation: clear to auscultation bilaterally Percussion: percussion normal Cardio Palpation: normal PMI Rate: regular rate Rhythm: regular rhythm Heart sounds: no murmurs and no rubs Peripheral pulses: Peripheral pulses 2+ throughout GI Inspection: Yes normal to inspection Palpation (GI): Soft to palpation, nontender, no guarding, not rigid and No hepatosplenomegaly present Percussion: Yes normal to percussion Auscultation: normal bowel sounds Rectal Exam - Female: deferred General: Yes bladder normal to palpation External Female Exam: No lesion Speculum Exam - Vagina: normal appearance of the vagina, normal palpation, normal vaginal discharge and not erythematous Speculum Exam - Cervix: normal appearance of the cervix and normal palpation Bimanual exam- vagina & uterus: normal bimanual exam, normal palpation, uterine size normal, bladder normal to palpation, consistency normal and normal palpation Bimanual Exam- Adnexa, other: normal adnexae, no masses and no tenderness Assessment & Plan Assessment & Plan (1) Well woman exam: Code(s): Z01.419 - Encounter for gynecological examination (general) (routine) without abnormal findings Plan: Co testing at indicated this. Counseled the patient about the recommended dietary allowance of 1200 mg of Calcium & 600 IU of vitamin D. Instructions given the patient to schedule next screening Mammogram in 03/05. The patient is up-to-date with her screening colonoscopy . The patient was instructed to perform monthly self-breast exams and schedule annual exam in a year. All questions answered and the patient verbalized understanding. Coding Level of Care Code Est Pt Prev Care 40-64y(59383) Diagnoses Well woman exam Z01.419
[2023-05-18 07:57] VITALS: BP 110/76; BMI 44.4
== END 2023-05-18 09:02 | disposition home or self-care (01) ==
PROVIDERS: Visit Provider Obstetrics & Gynecology
DX: Z01.419 Encounter for gynecological examination (general) (routine) without abnormal findings (principal)
CPT/HCPCS: 99396

== ENCOUNTER → 2023-05-18 07:48 | Outpatient (BNVA) | payer OTHER, SELFPAY | PROVIDERS: Visit Provider Obstetrics & Gynecology ==

== ENCOUNTER 2023-05-25 08:19 | Outpatient (REF) | payer OTHER, SELFPAY ==
[2023-05-25 09:16] LABS: Estimated Average Glucose 134 mg/dL; Hemoglobin A1C 151.5741 umol/L; Hemoglobin A1c % 6.3 % (<6.0)
[2023-05-25 09:49] LABS: Creatinine Urine 233.75 mg/dL; Microalbum/Creatinine Ratio Ur 24.3 ug/mg cr (<30)
[2023-05-25 10:07] LABS: Alanine Aminotransferase 20 U/L (0-31); Anion Gap 13 (12-20); Aspartate Amino Transferase 18 U/L (5-31); Blood Urea Nitrogen 5 mg/dL (9-16); Calcium 9.4 mg/dL (8.4-10.2); Carbon Dioxide 26 mmol/L (22-29); Chloride 107 mmol/L (96-108); Cholesterol 180 mg/dL (<200); Estimated Glomerular Filt Rate > 60; Glucose Fasting 118 mg/dL (60-99); HDL Cholesterol 35 mg/dL (>40); LDL Cholesterol Calculated 108 mg/dL (<100); Potassium 3.5 mmol/L (3.3-5.1); Sodium 142 mmol/L (135-145); Triglycerides 186 mg/dL (<150)
[2023-05-25 10:09] LABS: Free T4 (Free Thyroxine) 0.95 ng/dL (0.71-1.85); Thyroid Stimulating Hormone 0.09 uIU/mL (0.32-4.0); Vitamin D 25-OH Total 47.9 ng/mL (>30)
== END 2023-05-25 08:20 | disposition home or self-care (01) ==
LOC: HO.LAB 08:19
PROVIDERS: PCP Internal Medicine; Visit Provider Internal Medicine
DX: E78.2 Mixed hyperlipidemia (principal); R73.01 Impaired fasting glucose; E66.01 Morbid (severe) obesity due to excess calories; E03.9 Hypothyroidism, unspecified
CPT/HCPCS: 36415; 80048; 80061; 82043; 82306; 82570; 83036; 84439; 84443; 84450; 84460

== ENCOUNTER 2023-06-11 12:47 | Outpatient (AMB) | payer OTHER, SELFPAY ==
--- NOTE | 2023-06-11 13:01 | MHC.PC.OV ---
Vital Signs 06/11/23 13:03 Height 4 ft 11 in Weight 217 lb 8 oz BMI 43.9 BP 126/82 Blood Pressure Location Lt brachial Position Sitting Pulse 105 H Pulse Source Pulse Oximeter Pulse Oximetry (%) 100 Oxygen Delivery Method Room Air Intake Visit Reasons: PE Intake Note: Pt is here for her Annual PE Allergies penicillin V Allergy (Intermediate, Verified 06/11/23 13:18) hives Sulfa (Sulfonamide Antibiotics) Allergy (Intermediate, Verified 06/11/23 13:18) hives Medication List - Last Reconciled 06/11/23 by Lizeth Andrew MD cholecalciferol (vitamin D3) 600 units PO DAILY lactobacillus combination no.4 (Probiotic) 3,000 mmu cells PO DAILY levonorgestrel (Mirena) intrauterine levothyroxine 100 mcg PO QAM loratadine (Claritin) 10 mg PO DAILY qlucngxc-tpy-wrpz-FA-vit K-lut 8 mg iron-400 mcg-50 mcg (Multivitamin Women 50 Plus) 1 tab PO DAILY omeprazole 20 mg PO DAILY simvastatin 40 mg PO BEDTIME Tobacco use date assessed: 06/11/23 Dental Screening Dental Screen Date: 06/11/23 Did you have a dental visit in the last 12 months?: Yes Did you have a dental problem in the last 6 months where you did not have access to dental care?: No Was dental information given to patient?: Patient has dentist HPI PE HPI Details 52-year-old lady here today for physical exam. She has diabetes mellitus, diet- controlled, has acquired hypothyroidism, stable and controlled on present dose of levothyroxine at 100 mcg daily in the morning. She has hyperlipidemia with latest fasting lipids showing improving and triglyceride levels and LDL cholesterol as well as HDL cholesterol, currently on simvastatin. Patient states that she has changed her diet, has avoided a lot of carbs and has started walking for exercise. She has an appointment scheduled for her screening mammogram later this year and goes to Dr. Schneider for her routine Pap and pelvic exam. She had a screening colonoscopy done by Dr. Ocasio earlier this year, with removal of 2 hyperplastic polyps and presence of diverticulosis seen. She started taking probiotics, which has been helping her move her bowels regularly. [facility] Medical History Rhinitis Mixed dyslipidemia Impaired fasting glucose Encounter for well woman exam with routine gynecological exam Rosacea Morbid obesity Hypothyroidism (acquired) GERD (gastroesophageal reflux disease) Surgical History Hx of colonoscopy Hx of endoscopy Family History Mother Diabetes Paternal Grandfather Brain cancer Paternal Grandmother Lung cancer Son Asthma Social History Housing: House Alcohol intake: current Patient Tobacco Use Status: Former Tobacco user Tobacco use type: Cigarette e-Cigarette/Vaping Use: Never Used service: No Current occupational status: employed Sexual orientation: Straight/Heterosexual Gender identity: Female Cognitive needs: No Hearing needs: No Vision needs: No Female Reproductive History Menstrual Age of Menarche: 12 Questionnaire Thrive Questionnaire Date Thrive assessed: 11/03/22 REYNALDO-7 AMB Questionnaire REYNALDO-7 Date REYNALDO - 7 assessed: 11/03/22 Source: Developed by Drs. Stanislav Rodriguez, Em Figueroa, Moreno Sawant and colleagues, with an educational letty from [employer]. Physical exam (Primary Care) Vital Signs: Last Vital Signs Pulse 105 H 06/11/23 13:03 BP 126/82 06/11/23 13:03 Pulse Ox 100 06/11/23 13:03 Oxygen Delivery Method Room Air 06/11/23 13:03 BMI result Body Mass Index 43.9 Tobacco/Smoking Status: Tobacco use Status Tobacco use date assessed 06/11/23 06/11/23 13:08 Patient Tobacco Use Status Former Tobacco user 06/11/23 13:05 Tobacco use type Cigarette 06/11/23 13:05 e-Cigarette/Vaping Use Never Used 06/11/23 13:05 Thrive Assessment: Date of Thrive Assessment Date Thrive assessed 11/03/22 06/11/23 13:05 Office Procedures Flu Questionnaire Does the patient have a severe egg allergy?: No Does the patient have severe life threatening allergies?: No Does the patient have a fever or illness today?: No Has the patient ever had Guillain-[place] Syndrome?: No Has the patient ever had any past reaction to a flu shot?: No Immunizations flu vacc [id number] 6mos up(PF) 60 mcg(15 mcgx4)/0.5 mL IM syringe Performing Provider: Lizeth Andrew MD Performing Location: [facility] Administered by: Corinna Arboleda CMA on 06/11/23 13:34 Dose Route Admin Location Dispensed Lot Number Expiration Date NDC [employer] 0.5 mL IM Left Deltoid 0.5 mL [id number] 01/10/24 [id number] [employer] VIS Given Date VIS Provided VIS Publication Date 06/11/23 Single Vaccine 21 Eligibility Eligibility Date Funding Source Not VFC Eligible 06/11/23 Private Results Reviewed Results Reviewed: ENTERED: 05/25/[address]: ORDERED: Met Prof Fast, AST, ALT, Lipid Panel, Vitamin D 25-OH, Free T4, TSH Test Result Flag Reference Site Sodium 142 135-145 mmol/L Potassium 3.5 3.3-5.1 mmol/L CL 107 96-108 mmol/L CO2 26 22-29 mmol/L Gap 13 12-20 BUN 5 L 9-16 mg/dL Creat 0.68 0.5-1.4 mg/dL EGFR > 60 NOTE: For -[place] individuals, multiply the result by 1.210. Chronic Kidney Disease: Estimated GFR < 60 mL/min/1.73m2 Severe Kidney Disease: Estimated GFR < 15 mL/min/1.73m2 FBS 118 H 60-99 mg/dL A fasting glucose from 100-125 mg/dl is considered impaired (pre-diabetes). CA 9.4 8.4-10.2 mg/dL AST (GOT) 18 5-31 U/L ALT (GPT) 20 0-31 U/L Triglyceride 186 H <150 mg/dL Desirable Triglyceride: less than 150 mg/dL Borderline High Triglyceride 150-199 mg/dL High Triglyceride: 200-499 mg/dL Very High Triglyceride: greater than or equal to 5OO mg/dL Cholesterol 180 <200 mg/dL Desirable Cholesterol: less than 200 mg/dL Borderline High Cholesterol: 200-239 mg/dL High Cholesterol: greater than 239 mg/dL LDL Calculated 108 H <100 mg/dL Desirable LDL: less than 100 mg/dL Near Optimal/Above Optimal LDL: 110-129 mg/dL Borderline High LDL: 130-159 mg/dL High LDL: 160-189 mg/dL Very High LDL: greater than or equal to 190 mg/dL HDL 35 L >40 mg/dL Desirable HDL: greater than 40 mg/dL Note: This HDL assay may give artificially low results in patients with liver disease. Vit D 25-OH Tot 47.9 >30 ng/mL Health Based Reference Values* < 20 ng/mL Deficient 20-30 ng/mL Insufficient > 30 ng/mL Sufficient *Heron BERG. N Engl J Med. 2007;357:266-280 Care must be taken in interpreting Vitamin D results from different laboratories and methodologies. Published data demonstrated that results from patients undergoing hemodialysis may show a negative bias when tested with various automated 25-OH vitamin D assays when compared to LC-MS/MS. When testing samples from patients whose predominant form of Vitamin D is Vitamin D2, such as patients receiving Vitamin D2 supplementation, results that are subtherapeutic should be confirmed with another method such as LC-MS/MS. Free T4 0.95 0.71-1.85 ng/dL TSH 3rd Gen. 0.09 L 0.32-4.0 uIU/mL TSH 3rd Generation ([facility]) Laboratory Tests 05/25/23 08:23 Urine Creatinine 233.75 Urine Microalbumin 57.0 Microalb/Creat Ratio 24.3 Laboratory Tests 05/25/23 08:30 Estimat Average Glucose 134 Hemoglobin A1c % 6.3 H Assessment and Plan Assessment & Plan (1) Annual visit for general adult medical examination with abnormal findings: Code(s): Z00.01 - Encounter for general adult medical examination with abnormal findings Plan: Reviewed recent fasting labs with patient. Continue regular dental visit every 6 months and regular eye exams, sees Dr. Azul. Take adequate calcium in diet and vitamin-D 3 at 2000 IU per cap once a day, in addition to weight-bearing exercises to help maintain good muscle tone and weight control. Instructed to do self-breast exam, and get yearly mammogram, already has an appointment scheduled. She is up-to-date with her shingles vaccine and pneumonia vaccine, flu vaccine given today, reminded to get her COVID booster (2) Mixed dyslipidemia: Code(s): E78.2 - Mixed hyperlipidemia (3) Impaired fasting glucose: Code(s): R73.01 - Impaired fasting glucose (4) Morbid obesity: Code(s): E66.01 - Morbid (severe) obesity due to excess calories (5) Hypothyroidism (acquired): Code(s): E03.9 - Hypothyroidism, unspecified Orders: Orders Influenza [id number] Immunization Today Z23 - Encounter for immunization Lipid Panel 11/11/23 E03.9 - Hypothyroidism, unspecified, E66.01 - Morbid (severe) obesity due to excess calories, E78.2 - Mixed hyperlipidemia, R73.01 - Impaired fasting glucose Alanine Aminotransferase 11/11/23 E03.9 - Hypothyroidism, unspecified, E66.01 - Morbid (severe) obesity due to excess calories, E78.2 - Mixed hyperlipidemia, R73.01 - Impaired fasting glucose Aspartate Amino Transferase 11/11/23 E03.9 - Hypothyroidism, unspecified, E66.01 - Morbid (severe) obesity due to excess calories, E78.2 - Mixed hyperlipidemia, R73.01 - Impaired fasting glucose Vitamin D 25-OH Total 11/11/23 E03.9 - Hypothyroidism, unspecified, E66.01 - Morbid (severe) obesity due to excess calories, E78.2 - Mixed hyperlipidemia, R73.01 - Impaired fasting glucose Free T4 (Free Thyroxine) 11/11/23 E03.9 - Hypothyroidism, unspecified, E66.01 - Morbid (severe) obesity due to excess calories, E78.2 - Mixed hyperlipidemia, R73.01 - Impaired fasting glucose Hemoglobin A1c 11/11/23 E03.9 - Hypothyroidism, unspecified, E66.01 - Morbid (severe) obesity due to excess calories, E78.2 - Mixed hyperlipidemia, R73.01 - Impaired fasting glucose Basic Metabolic Panel Fasting 11/11/23 E03.9 - Hypothyroidism, unspecified, E66.01 - Morbid (severe) obesity due to excess calories, E78.2 - Mixed hyperlipidemia, R73.01 - Impaired fasting glucose Thyroid Stimulating Hormone 11/11/23 E03.9 - Hypothyroidism, unspecified, E66.01 - Morbid (severe) obesity due to excess calories, E78.2 - Mixed hyperlipidemia, R73.01 - Impaired fasting glucose Coding Level of Care Code Est Pt Prev Care 40-64y(14384) Diagnoses Annual visit for general adult medical examination with abnormal findings Z00.01 Mixed dyslipidemia E78.2 Impaired fasting glucose R73.01 Morbid obesity E66.01 Hypothyroidism (acquired) E03.9
[2023-06-11 13:03] VITALS: BP 126/82; PULSE 105; O2SAT 100; BMI 43.9
== END 2023-06-11 15:24 | disposition home or self-care (01) ==
PROVIDERS: Visit Provider Internal Medicine
DX: Z00.00 Encounter for general adult medical examination without abnormal findings (principal); E66.01 Morbid (severe) obesity due to excess calories; Z68.41 Body mass index [BMI] 40.0-44.9, adult; Z23 Encounter for immunization; E78.2 Mixed hyperlipidemia; R73.01 Impaired fasting glucose; E03.9 Hypothyroidism, unspecified
CPT/HCPCS: 90471; 90686; 99396

== ENCOUNTER 2023-08-07 15:42 | Outpatient (REF) | payer OTHER, SELFPAY | END 2023-08-07 15:43 | disposition home or self-care (01) | LOC: HO.MAMMO 15:42 | PROVIDERS: PCP Internal Medicine; Visit Provider Internal Medicine | DX: Z12.31 Encounter for screening mammogram for malignant neoplasm of breast (principal) | CPT/HCPCS: 77063; 77067 ==

== ENCOUNTER → 2023-08-07 16:00 | Outpatient (BNV) | payer OTHER, SELFPAY | PROVIDERS: PCP Internal Medicine; Visit Provider Radiology Diagnostic Radiology | DX: Z12.31 Encounter for screening mammogram for malignant neoplasm of breast (principal) | CPT/HCPCS: 77063; 77067 ==

== ENCOUNTER 2023-12-05 08:33 | Outpatient (REF) | payer OTHER, SELFPAY ==
[2023-12-05 09:43] LABS: Estimated Average Glucose 137 mg/dL; Hemoglobin A1c % 6.4 % (<6.0)
[2023-12-05 10:10] LABS: Free T4 (Free Thyroxine) 1.02 ng/dL (0.71-1.85); Thyroid Stimulating Hormone 0.05 uIU/mL (0.32-4.0)
[2023-12-05 10:19] LABS: Alanine Aminotransferase 26 U/L (0-31); Anion Gap 20 (12-20); Aspartate Amino Transferase 39 U/L (5-31); Blood Urea Nitrogen 9 mg/dL (9-16); Calcium 9.7 mg/dL (8.4-10.2); Carbon Dioxide 19 mmol/L (22-29); Chloride 108 mmol/L (96-108); Cholesterol 166 mg/dL (<200); Estimated Glomerular Filt Rate > 60; Glucose Fasting 125 mg/dL (60-99); HDL Cholesterol 35 mg/dL (>40); LDL Cholesterol Calculated 93 mg/dL (<100); Potassium 4.8 mmol/L (3.3-5.1); Sodium 142 mmol/L (135-145); Triglycerides 194 mg/dL (<150)
== END 2023-12-05 08:34 | disposition home or self-care (01) ==
LOC: HO.LAB 08:33
PROVIDERS: PCP Internal Medicine; Visit Provider Internal Medicine
DX: E78.2 Mixed hyperlipidemia (principal); R73.01 Impaired fasting glucose; E03.9 Hypothyroidism, unspecified; E66.01 Morbid (severe) obesity due to excess calories
CPT/HCPCS: 36415; 80048; 80061; 82306; 83036; 84439; 84443; 84450; 84460

== ENCOUNTER 2023-12-11 06:56 | Outpatient (AMB) | payer OTHER, SELFPAY ==
--- NOTE | 2023-12-11 08:11 | A.OFFPC_ITS ---
Intake Visit Reasons: 6 mo f/u labs Andriod [phone] Intake Note: Pt is having a TH visit to discuss lab results Allergies penicillin V Allergy (Intermediate, Verified 12/11/23 08:26) hives Sulfa (Sulfonamide Antibiotics) Allergy (Intermediate, Verified 12/11/23 08:26) hives Medication List - Last Reconciled 12/11/23 by Lizeth Andrew MD cholecalciferol (vitamin D3) 600 units PO DAILY lactobacillus combination no.4 (Probiotic) 3,000 mmu cells PO DAILY levonorgestrel (Mirena) intrauterine levothyroxine 100 mcg PO QAM loratadine (Claritin) 10 mg PO DAILY yuttvgvn-osx-kpzr-FA-vit K-lut 8 mg iron-400 mcg-50 mcg (Multivitamin Women 50 Plus) 1 tab PO DAILY omeprazole 20 mg PO DAILY simvastatin 40 mg PO BEDTIME Tobacco use date assessed: 12/11/23 Dental Screening Dental Screen Date: 12/11/23 Did you have a dental visit in the last 12 months?: Yes Did you have a dental problem in the last 6 months where you did not have access to dental care?: Yes Was dental information given to patient?: Patient has dentist HPI 6 mo f/u labs Andriod [phone] HPI Details 53-year-old lady with hypothyroidism, mi xed dyslipidemia, and prediabetes, here today for follow-up. She has been compliant with her medications, but not so much with diet and has not been moving as much as she was in the summertime. Latest hemoglobin A1c has gone up%, fasting tr iglycerides is higher but LDL cholesterol is lower than last check. Has been feeling well with no complaints at present time. [facility] Medical History Rhinitis Mixed dyslipidemia Impaired fasting glucose Encounter for well woman exam with routine gynecological exam Rosacea Morbid obesity Hypothyroidism (acquired) GERD (gastroesophageal reflux disease) Surgical History Hx of colonoscopy Hx of endoscopy Family History Mother Diabetes Paternal Grandfather Brain cancer Paternal Grandmother Lung cancer Son Asthma Social History Housing: House Alcohol intake: current Patient Tobacco Use Status: Former Tobacco user Tobacco use type: Cigarette e-Cigarette/Vaping Use: Never Used service: No Current occupational status: employed Sexual orientation: Straight/Heterosexual Gender identity: Female Cognitive needs: No Hearing needs: No Vision needs: No Female Reproductive History Menstrual Age of Menarche: 12 Questionnaire PHQ-9 Over the last 2 weeks, how often have you been bothered by any of the following problems? 1. Little interest or pleasure in doing things: not at all 2. Feeling down, depressed, or hopeless: not at all 3. Trouble falling or staying asleep, or sleeping too much: not at all 4. Feeling tired or having little energy: not at all 5. Poor appetite or overeating: not at all 6. Feeling bad about yourself - or that you are a failure or have let yourself or your family down: not at all 7. Trouble concentrating on things, such as reading the newspaper or watching television: not at all 8. Moving or speaking so slowly that other people could have noticed. Or the opposite - being so fidgety or restless that you have been moving around a lot more than usual: not at all 9. Thoughts that you would be better off or of hurting yourself in some way: not at all Total score: 0 Depression Screening Interpretation: Negative Depression Screening Done: Yes 71936 - PHQ-9 Billing: Yes Source: Developed by Drs. Stanislav Rodriguez, Em Figueroa, Moreno Sawant and colleagues, with an educational letty from [employer]. Thrive Questionnaire Date Thrive assessed: 12/11/23 I am a: Patient What is your living situation today?: I have a steady place to live Within the past 12 months, did the food you bought not last and you didn't have the money to get more?: Never true Within the past 12 months, did you worry whether your food would run out before you got money to buy more?: Never true Do you have trouble paying for medicines?: No Do you have trouble getting transportation to medical appointments?: No Do you have trouble paying your heating and electricity bill?: No Do you have trouble taking care of your child, family member or friend?: No Do you have trouble with day-to-day activities such as bathing, preparing meals, shopping, managing finances, etc.?: No Are you currently unemployed and looking for a job?: No Are you interested in more education?: No THRIVE Score: 0 AUDIT C Alcohol Use Questionnaire (AUDIT-C) 1. How often do you have a drink containing alcohol?: Monthly or less 2. How many drinks containing alcohol do you have on a typical day when you are drinking?: 1 or 2 3. How often do you have six or more drinks on one occasion?: Never Total Score: 1 REYNALDO-7 AMB Questionnaire REYNALDO-7 Date REYNALDO - 7 assessed: 12/11/23 Feeling nervous, anxious, or on edge: 0 = Not at all Not being able to stop or control worryin = Not at all Worrying too much about different things: 0 = Not at all Trouble relaxin = Not at all Being so restless that it is hard to sit still: 0 = Not at all Becoming easily annoyed or irritable: 0 = Not at all Feeling afraid as if something awful might happen: 0 = Not at all Total REYNALDO-7 score (0-4 normal; 5-9 mild; 10-14 moderate; 15-21 severe): 0 Source: Developed by Drs. Stanislav Rodriguez, Em Figueroa, Moreno Sawant and colleagues, with an educational letty from [employer]. REYNALDO-7 Assessment Billing REYNALDO-7 Assessment Tool: REYNALDO-7 Assessment 40192 Review of Systems Const Denies body aches, Denies fatigue, Denies fever(s), Denies headache(s) and Denies weakness Eyes Details: Sees Dr. Azul Denies change in vision ENT Denies headache(s), Denies nasal discharge and Denies sore throat Card Denies chest pain, Denies lightheadedness, Denies palpitations and Denies dyspnea Resp Denies chest congestion, Denies cough, Denies dyspnea and Denies wheezing GI Denies abdominal pain, Denies change in bowel habits and Denies heartburn Details: Follows with [facility] for her routine Pap and pelvic exam Denies urinary frequency, Denies dysuria and Denies urinary urgency Musc Reports no additional complaints Skin/Breast Denies lesions and Denies rash Neuro Denies headache(s) and Denies weakness Psych Reports as per HPI Endo Denies fatigue, Denies polydipsia, Denies polyuria and Denies palpitations Abundio/Lymph Denies easy bruising Aller/Immun Denies seasonal rhinorrhea and Denies wheezing Physical exam (Primary Care) Tobacco/Smoking Status: Tobacco use Status Tobacco use date assessed 12/11/23 12/11/23 08:14 Patient Tobacco Use Status Former Tobacco user 12/11/23 08:14 Tobacco use type Cigarette 12/11/23 08:14 e-Cigarette/Vaping Use Never Used 12/11/23 08:14 PHQ-9: PHQ-9 Score PHQ-9: Total score 0 12/11/23 08:22 Depression Screening Interpretation: Negative Thrive Assessment: Date of Thrive Assessment Date Thrive assessed 12/11/23 12/11/23 08:14 Telehealth Telehealth Telehealth Platform: Bjond Location of provider rendering services: practice address Location of patient: address on file Patient Identification confirmed using: Name, : Yes Telehealth method: video Patient verbally consented to treatment: Yes Patient verbally consented to billing insurance company: Yes Patient informed of any privacy concerns related to visit: Yes Minutes spent on Phone/Video with Pt.: 15 Results Reviewed Results Reviewed: Name: Gayle Brownlee Age/Sex: 52/F : 1970 Unit#: [id number] Attend Dr: Lizeth Andrew MD Re12/05/23 Status: DEP [facility]: SPEC : [id number] ALEX: 12/05/23 STATUS: COMP REQ : [id number] RECD: 12/05/[address]: Lizeth Andrew MD COMP: 12/05/23-1010 ENTERED: 12/05/[address]: ORDERED: Met Prof Fast, AST, ALT, Lipid Panel, Vitamin D 25-OH, Free T4, TSH Test Result Flag Reference Sodium 142 135-145 mmol/L Potassium 4.8 3.3-5.1 mmol/L Moderate Hemolysis CL 108 96-108 mmol/L CO2 19 L 22-29 mmol/L Gap 20 12-20 BUN 9 9-16 mg/dL Creat 0.68 0.5-1.4 mg/dL Moderate Hemolysis EGFR > 60 NOTE: For -[place] individuals, multiply the result by 1.210. Chronic Kidney Disease: Estimated GFR < 60 mL/min/1.73m2 Severe Kidney Disease: Estimated GFR < 15 mL/min/1.73m2 FBS 125 H 60-99 mg/dL A fasting glucose from 100-125 mg/dl is considered impaired (pre-diabetes). CA 9.7 8.4-10.2 mg/dL Moderate Hemolysis AST (GOT) 39 H 5-31 U/L Moderate Hemolysis ALT (GPT) 26 0-31 U/L Moderate Hemolysis Triglyceride 194 H <150 mg/dL Desirable Triglyceride: less than 150 mg/dL Borderline High Triglyceride 150-199 mg/dL High Triglyceride: 200-499 mg/dL Very High Triglyceride: greater than or equal to 5OO mg/dL Cholesterol 166 <200 mg/dL Desirable Cholesterol: less than 200 mg/dL Borderline High Cholesterol: 200-239 mg/dL High Cholesterol: greater than 239 mg/dL LDL Calculated 93 <100 mg/dL Desirable LDL: less than 100 mg/dL Near Optimal/Above Optimal LDL: 110-129 mg/dL Borderline High LDL: 130-159 mg/dL High LDL: 160-189 mg/dL Very High LDL: greater than or equal to 190 mg/dL HDL 35 L >40 mg/dL Desirable HDL: greater than 40 mg/dL Note: This HDL assay may give artificially low results in patients with liver disease. Vit D 25-OH Tot 37.0 >30 ng/mL Health Based Reference Values* < 20 ng/mL Deficient 20-30 ng/mL Insufficient > 30 ng/mL Sufficient *Heron BERG. N Engl J Med. 2007;357:266-280 Care must be taken in interpreting Vitamin D results from different laboratories and methodologies. Published data demonstrated that results from patients undergoing hemodialysis may show a negative bias when tested with various automated 25-OH vitamin D assays when compared to LC-MS/MS. When testing samples from patients whose predominant form of Vitamin D is Vitamin D2, such as patients receiving Vitamin D2 supplementation, results that are subtherapeutic should be confirmed with another method such as LC-MS/MS. Free T4 1.02 0.71-1.85 ng/dL TSH 3rd Gen. 0.05 L 0.32-4.0 uIU/mL TSH 3rd Generation ([facility]) Assessment and Plan Assessment & Plan (1) Hypothyroidism (acquired): Code(s): E03.9 - Hypothyroidism, unspecified Plan: Latest TSH is suppressed but free T4 is within normal limits patient states she is feeling well on current dose of levothyroxine 100 mcg daily in a.m. will continue will repeat again in July 2024 prior to her next visit (2) Morbid obesity: Code(s): E66.01 - Morbid (severe) obesity due to excess calories Plan: Discussed need to increase activity . Recommended focusing on improving your health instead of dieting. : Eat Mediterranean diet, limit foods high in fat, sugar, and calories, eat slowly, pay attention to portion sizes, plan your meals ahead of time, start regular physical activity 150 minutes of moderate intensity exercise or 90 minutes/week of vigorous exercise and do not forget to stay well- hydrated (3) Impaired fasting glucose: Code(s): R73.01 - Impaired fasting glucose Plan: Your fasting blood sugars were elevated above 100 mg/dL. Impaired glucose metabolism increases the risk for developing diabetes mellitus type 2, as well as heart attack and stroke later on. Lifestyle changes at just weight loss, healthy eating habits, and regular exercise are important, and can prevent the progression to diabetes (4) Mixed dyslipidemia: Code(s): E78.2 - Mixed hyperlipidemia Plan: Reviewed recent fasting lipid profile with patient with higher triglycerides but lower LDL cholesterol . Continue with simvastatin 40 mg daily at night , in addition to adherence to low-cholesterol diet and regular exercise, at least 30 minutes 3 to 4 times a week. Advised patient to make healthy food choices, eat more fruits, vegetables, whole grains, wild caught fish and low-fat dairy. Limit amount of meat and fried or fatty food products, as well as processed foods and fast foods. Follow-up scheduled with repeat fasting lipid panel in 07/2024 prior to next visit Orders: Orders Lipid Panel 07/13/24 E03.9 - Hypothyroidism, unspecified, E66.01 - Morbid (severe) obesity due to excess calories, E78.2 - Mixed hyperlipidemia, R73.01 - Impaired fasting glucose Basic Metabolic Panel Fasting 07/13/24 E03.9 - Hypothyroidism, unspecified, E66.01 - Morbid (severe) obesity due to excess calories, E78.2 - Mixed hyperlipidemia, R73.01 - Impaired fasting glucose Aspartate Amino Transferase 07/13/24 E03.9 - Hypothyroidism, unspecified, E66.01 - Morbid (severe) obesity due to excess calories, E78.2 - Mixed hyperlipidemia, R73.01 - Impaired fasting glucose Vitamin D 25-OH Total 07/13/24 E03.9 - Hypothyroidism, unspecified, E66.01 - Morbid (severe) obesity due to excess calories, E78.2 - Mixed hyperlipidemia, R73.01 - Impaired fasting glucose Hemoglobin A1c 07/13/24 E03.9 - Hypothyroidism, unspecified, E66.01 - Morbid (severe) obesity due to excess calories, E78.2 - Mixed hyperlipidemia, R73.01 - Impaired fasting glucose Alanine Aminotransferase 07/13/24 E03.9 - Hypothyroidism, unspecified, E66.01 - Morbid (severe) obesity due to excess calories, E78.2 - Mixed hyperlipidemia, R73.01 - Impaired fasting glucose Microalbumin, Random (w Creat) 07/13/24 E03.9 - Hypothyroidism, unspecified, E66.01 - Morbid (severe) obesity due to excess calories, E78.2 - Mixed hyperlipidemia, R73.01 - Impaired fasting glucose Thyroid Stimulating Hormone 07/13/24 E03.9 - Hypothyroidism, unspecified, E66.01 - Morbid (severe) obesity due to excess calories, E78.2 - Mixed hyperlipidemia, R73.01 - Impaired fasting glucose Free T4 (Free Thyroxine) 07/13/24 E03.9 - Hypothyroidism, unspecified, E66.01 - Morbid (severe) obesity due to excess calories, E78.2 - Mixed hyperlipidemia, R73.01 - Impaired fasting glucose Coding Level of Care Code Tele Est Pt Level 4 (30805) Complex EM visit Add On G2211 Diagnoses Hypothyroidism (acquired) E03.9 Morbid obesity E66.01 Impaired fasting glucose R73.01 Mixed dyslipidemia E78.2 Additional Codes REYNALDO-7 Assessment Billing - REYNALDO-7 Assessment Tool: REYNALDO-7 Assessment [id number] ([id number])
== END 2023-12-11 12:20 | disposition home or self-care (01) ==
PROVIDERS: PCP Internal Medicine; Visit Provider Internal Medicine
DX: E03.9 Hypothyroidism, unspecified (principal); E66.01 Morbid (severe) obesity due to excess calories; R73.01 Impaired fasting glucose; E78.2 Mixed hyperlipidemia
CPT/HCPCS: 99214; G2211

== ENCOUNTER 2024-07-23 08:20 | Outpatient (REF) | payer BC, SELFPAY ==
[2024-07-23 08:44] LABS: Estimated Average Glucose 146 mg/dL; Hemoglobin A1C 168.3621 umol/L; Hemoglobin A1c % 6.7 % (<6.0); Total Hemoglobin (HGBA1C) 3410.2683 umol/L
[2024-07-23 09:21] LABS: Alanine Aminotransferase 35 U/L (0-31); Anion Gap 13 (12-20); Aspartate Amino Transferase 34 U/L (5-31); Blood Urea Nitrogen 6 mg/dL (9-16); Calcium 8.7 mg/dL (8.4-10.2); Carbon Dioxide 26 mmol/L (22-29); Chloride 105 mmol/L (96-108); Cholesterol 142 mg/dL (<200); Estimated Glomerular Filt Rate > 60; Glucose Fasting 126 mg/dL (60-99); HDL Cholesterol 28 mg/dL (>40); LDL Cholesterol Calculated 79 mg/dL (<100); Potassium 3.6 mmol/L (3.3-5.1); Sodium 140 mmol/L (135-145); Triglycerides 179 mg/dL (<150)
[2024-07-23 09:39] LABS: Free T4 (Free Thyroxine) 1.24 ng/dL (0.71-1.85); Thyroid Stimulating Hormone 0.05 uIU/mL (0.32-4.0); Vitamin D 25-OH Total 46.6 ng/mL (>30)
[2024-07-23 10:18] LABS: Creatinine Urine 110.71 mg/dL; Microalbum/Creatinine Ratio Ur 13.5 ug/mg cr (<30)
== END 2024-07-23 08:21 | disposition home or self-care (01) ==
LOC: HO.LAB 08:20
PROVIDERS: PCP Internal Medicine; Visit Provider Internal Medicine
DX: E78.2 Mixed hyperlipidemia (principal); R73.01 Impaired fasting glucose; E66.01 Morbid (severe) obesity due to excess calories; E03.9 Hypothyroidism, unspecified
CPT/HCPCS: 36415; 80048; 80061; 82043; 82306; 82570; 83036; 84439; 84443; 84450; 84460

== ENCOUNTER 2024-08-02 12:28 | Outpatient (AMB) | payer BC, SELFPAY ==
--- NOTE | 2024-08-02 12:30 | MHC.PC.OV ---
Vital Signs 08/02/24 12:32 Height 4 ft 11 in Weight 215 lb BMI 43.4 BP 118/88 Blood Pressure Location Lt brachial Position Sitting Pulse 86 Pulse Source Pulse Oximeter Pulse Oximetry (%) 96 Oxygen Delivery Method Room Air Intake Visit Reasons: Annual PE Intake Note: Pt is here today for her PE: last mammogram 08/07/23, colonoscopy 03/09/23, papsmear 04/20/20 Allergies penicillin V Allergy (Intermediate, Verified 08/02/24 12:53) hives Sulfa (Sulfonamide Antibiotics) Allergy (Intermediate, Verified 08/02/24 12:53) hives Medication List - Last Reconciled 08/02/24 by Lizeth Andrew MD cholecalciferol (vitamin D3) 600 units PO DAILY lactobacillus combination no.4 (Probiotic) 3,000 mmu cells PO DAILY levonorgestrel (Mirena) intrauterine levothyroxine 100 mcg PO QAM loratadine (Claritin) 10 mg PO DAILY jtgcblhh-wyc-pzwi-FA-vit K-lut 8 mg iron-400 mcg-50 mcg (Multivitamin Women 50 Plus) 1 tab PO DAILY omeprazole 20 mg PO DAILY simvastatin 40 mg PO BEDTIME Tobacco use date assessed: 08/02/24 Dental Screening Dental Screen Date: 08/02/24 Did you have a dental visit in the last 12 months?: Yes Did you have a dental problem in the last 6 months where you did not have access to dental care?: No Was dental information given to patient?: Patient has dentist HPI Annual PE HPI Details last mammogram 08/07/23 and has appt for yearly mammo on 08/12/24, colonoscopy 03/09/23 with 2 hyperplastic polyps removed by Dr yaz krishnamurthy for repeat screening in 2032, papsmear 04/20/[address] has appt with Dr Schneider next month [facility] Medical History (Updated 08/02/24 @ 13:19 by Lizeth Andrew MD) Diabetes mellitus, without long-term current use of insulin Rhinitis Mixed dyslipidemia Impaired fasting glucose Encounter for well woman exam with routine gynecological exam Rosacea Morbid obesity Hypothyroidism (acquired) GERD (gastroesophageal reflux disease) Surgical History Hx of colonoscopy Hx of endoscopy Family History Mother Diabetes Paternal Grandfather Brain cancer Paternal Grandmother Lung cancer Son Asthma Social History Housing: House Alcohol intake: current Patient Tobacco Use Status: Former Tobacco user Tobacco use type: Cigarette e-Cigarette/Vaping Use: Never Used service: No Current occupational status: employed Sexual orientation: Straight/Heterosexual Gender identity: Female Cognitive needs: No Hearing needs: No Vision needs: No Female Reproductive History Menstrual Age of Menarche: 12 Questionnaire PHQ-9 Over the last 2 weeks, how often have you been bothered by any of the following problems? 1. Little interest or pleasure in doing things: not at all 2. Feeling down, depressed, or hopeless: not at all 3. Trouble falling or staying asleep, or sleeping too much: not at all 4. Feeling tired or having little energy: not at all 5. Poor appetite or overeating: not at all 6. Feeling bad about yourself - or that you are a failure or have let yourself or your family down: not at all 7. Trouble concentrating on things, such as reading the newspaper or watching television: not at all 8. Moving or speaking so slowly that other people could have noticed. Or the opposite - being so fidgety or restless that you have been moving around a lot more than usual: not at all 9. Thoughts that you would be better off or of hurting yourself in some way: not at all Total score: 0 Source: Developed by Drs. Stanislav Rodriguez, Em Figueroa, Moreno Sawant and colleagues, with an educational letty from [employer]. Thrive Questionnaire Date Thrive assessed: 07/26/24 I am a: Patient What is your living situation today?: I have a steady place to live Within the past 12 months, did the food you bought not last and you didn't have the money to get more?: Never true Within the past 12 months, did you worry whether your food would run out before you got money to buy more?: Never true Do you have trouble paying for medicines?: No Do you have trouble getting transportation to medical appointments?: No Do you have trouble paying your heating and electricity bill?: No Do you have trouble taking care of your child, family member or friend?: No Do you have trouble with day-to-day activities such as bathing, preparing meals, shopping, managing finances, etc.?: No Are you currently unemployed and looking for a job?: No Are you interested in more education?: No Please select the resources that you would like help with: None Currently or been in a relationship where the following occur: No concerns reported THRIVE Score: 0 AUDIT C Alcohol Use Questionnaire (AUDIT-C) 1. How often do you have a drink containing alcohol?: Monthly or less 2. How many drinks containing alcohol do you have on a typical day when you are drinking?: 1 or 2 3. How often do you have six or more drinks on one occasion?: Never Total Score: 1 REYNALDO-7 AMB Questionnaire REYNALDO-7 Date REYNALDO - 7 assessed: 08/02/24 Feeling nervous, anxious, or on edge: 0 = Not at all Not being able to stop or control worryin = Not at all Worrying too much about different things: 0 = Not at all Trouble relaxin = Not at all Being so restless that it is hard to sit still: 0 = Not at all Becoming easily annoyed or irritable: 0 = Not at all Feeling afraid as if something awful might happen: 0 = Not at all Total REYNALDO-7 score (0-4 normal; 5-9 mild; 10-14 moderate; 15-21 severe): 0 Source: Developed by Drs. Stanislav Rodriguez, Em Figueroa, Moreno Sawant and colleagues, with an educational letty from [employer]. Physical exam (Primary Care) Vital Signs: Last Vital Signs Pulse 86 08/02/24 12:32 BP 118/88 08/02/24 12:32 Pulse Ox 96 08/02/24 12:32 Oxygen Delivery Method Room Air 08/02/24 12:32 BMI result Body Mass Index 43.4 Tobacco/Smoking Status: Tobacco use Status Tobacco use date assessed 08/02/24 08/02/24 12:33 Patient Tobacco Use Status Former Tobacco user 08/02/24 12:33 Tobacco use type Cigarette 08/02/24 12:33 e-Cigarette/Vaping Use Never Used 08/02/24 12:33 PHQ-9: PHQ-9 Score PHQ-9: Total score 0 08/02/24 13:19 Thrive Assessment: Date of Thrive Assessment Date Thrive assessed 07/26/24 08/02/24 12:33 Currently or been in a relationship where the following occur: No concerns reported Office Procedures Flu Questionnaire Does the patient have a severe egg allergy?: No Does the patient have severe life threatening allergies?: No Does the patient have a fever or illness today?: No Has the patient ever had Guillain-Keystone Syndrome?: No Has the patient ever had any past reaction to a flu shot?: No Immunizations Fluarix Triv [id number] (PF) 45 mcg (15 mcg x 3)/0.5 mL IM syringe Performing Provider: Lizeth Andrew MD Performing Location: [facility] Administered by: Dung Mirza CMA on 08/02/24 13:30 Dose Route Admin Location Dispensed Lot Number Expiration Date [facility] Account Executive Sales Representative 0.5 mL IM Left Deltoid 0.5 mL [id number] 01/09/25 [id number] [employer] VIS Given Date VIS Provided VIS Publication Date 08/02/24 Single Vaccine 21 Eligibility Eligibility Date Funding Source Not [facility] Eligible 08/02/24 Private Results Reviewed Results Reviewed: rajan: Gayle Brownlee Age/Sex: 53/F : 1970 Unit#: [id number] Attend Dr: Lizeth Andrew MD Re07/23/24 Status: DEP REF Location: [facility] Disch: SPEC : [id number] ALEX: 07/23/24 STATUS: COMP REQ : [id number] RECD: 07/23/[address]: Lizeth Andrew MD COMP: 07/23/24 ENTERED: 07/23/[address]: ORDERED: Met Prof Fast, AST, ALT, Lipid Panel, Vitamin D 25-OH, Free T4, TSH Test Result Flag Reference Sodium 140 135-145 mmol/L Potassium 3.6 # 3.3-5.1 mmol/L CL 105 96-108 mmol/L CO2 26 22-29 mmol/L Gap 13 12-20 BUN 6 L 9-16 mg/dL Creat 0.71 0.5-1.4 mg/dL eGFR > 60 Chronic Kidney Disease: Estimated GFR < 60 mL/min/1.73m2 Severe Kidney Disease: Estimated GFR < 15 mL/min/1.73m2 FBS 126 H 60-99 mg/dL A fasting glucose of 126 mg/dl or greater on more than one occasion is considered diagnostic of diabetes. CA 8.7 # 8.4-10.2 mg/dL AST (GOT) 34 H 5-31 U/L ALT (GPT) 35 H 0-31 U/L Triglyceride 179 H <150 mg/dL Desirable Triglyceride: less than 150 mg/dL Borderline High Triglyceride 150-199 mg/dL High Triglyceride: 200-499 mg/dL Very High Triglyceride: greater than or equal to 5OO mg/dL Cholesterol 142 <200 mg/dL Desirable Cholesterol: less than 200 mg/dL Borderline High Cholesterol: 200-239 mg/dL High Cholesterol: greater than 239 mg/dL LDL Calculated 79 <100 mg/dL Desirable LDL: less than 100 mg/dL Near Optimal/Above Optimal LDL: 110-129 mg/dL Borderline High LDL: 130-159 mg/dL High LDL: 160-189 mg/dL Very High LDL: greater than or equal to 190 mg/dL HDL 28 L >40 mg/dL Desirable HDL: greater than 40 mg/dL Note: This HDL assay may give artificially low results in patients with liver disease. Vit D 25-OH Tot 46.6 >30 ng/mL Health Based Reference Values* < 20 ng/mL Deficient 20-30 ng/mL Insufficient > 30 ng/mL Sufficient *Heron BERG. N Engl J Med. 2007;357:266-280 Care must be taken in interpreting Vitamin D results from different laboratories and methodologies. Published data demonstrated that results from patients undergoing hemodialysis may show a negative bias when tested with various automated 25-OH vitamin D assays when compared to LC-MS/MS. When testing samples from patients whose predominant form of Vitamin D is Vitamin D2, such as patients receiving Vitamin D2 supplementation, results that are subtherapeutic should be confirmed with another method such as LC-MS/MS. Free T4 1.24 0.71-1.85 ng/dL TSH 3rd Gen. 0.05 L 0.32-4.0 uIU/mL Laboratory Tests 12/05/23 07/23/24 08:42 08:29 Estimat Average Glucose 137 146 Hemoglobin A1c % 6.4 H 6.7 H Coding Level of Care Code Est Pt Prev Care 40-64y(11122) Diagnoses Mixed dyslipidemia E78.2 Morbid obesity E66.01 Hypothyroidism (acquired) E03.9 Annual visit for general adult medical examination with abnormal findings Z00.01 Diabetes mellitus, without long-term current use of insulin E11.9 Hx of motion sickness Z87.898 Assessment & Plan Assessment & Plan (1) Mixed dyslipidemia: Code(s): E78.2 - Mixed hyperlipidemia Category: Medical (2) Morbid obesity: Code(s): E66.01 - Morbid (severe) obesity due to excess calories Category: Medical (3) Hypothyroidism (acquired): Code(s): E03.9 - Hypothyroidism, unspecified Category: Medical (4) Annual visit for general adult medical examination with abnormal findings: Code(s): Z00.01 - Encounter for general adult medical examination with abnormal findings Category: Medical Plan: flu vaccine given today (5) Diabetes mellitus, without long-term current use of insulin: Code(s): E11.9 - Type 2 diabetes mellitus without complications Category: Medical (6) Hx of motion sickness: Code(s): Z87.898 - Personal history of other specified conditions Orders: Orders Lipid Panel 10/11/24 E11.9 - Type 2 diabetes mellitus without complications, E66.01 - Morbid (severe) obesity due to excess calories, E78.2 - Mixed hyperlipidemia Basic Metabolic Panel Fasting 10/11/24 E11.9 - Type 2 diabetes mellitus without complications, E66.01 - Morbid (severe) obesity due to excess calories, E78.2 - Mixed hyperlipidemia Aspartate Amino Transferase 10/11/24 E11.9 - Type 2 diabetes mellitus without complications, E66.01 - Morbid (severe) obesity due to excess calories, E78.2 - Mixed hyperlipidemia Thyroid Stimulating Hormone 10/11/24 E03.9 - Hypothyroidism, unspecified Free T4 (Free Thyroxine) 10/11/24 E03.9 - Hypothyroidism, unspecified Influenza [id number] Immunization Today Z23 - Encounter for immunization Hemoglobin A1c 10/11/24 E11.9 - Type 2 diabetes mellitus without complications, E66.01 - Morbid (severe) obesity due to excess calories, E78.2 - Mixed hyperlipidemia Microalbumin, Random (w Creat) 10/11/24 E11.9 - Type 2 diabetes mellitus without complications, E66.01 - Morbid (severe) obesity due to excess calories, E78.2 - Mixed hyperlipidemia Alanine Aminotransferase 10/11/24 E11.9 - Type 2 diabetes mellitus without complications, E66.01 - Morbid (severe) obesity due to excess calories, E78.2 - Mixed hyperlipidemia Medications: New scopolamine base 1 patch transdermal Q3D PRN 4 ea 0RF nausea and vomiting metformin ER 500 mg PO QPM 90 tabs 1RF Fluarix Triv [id number] (PF) (flu vacc [id number] 6mos up(PF)) 0.5 mL IM ONCE 0.5 mL 0RF NS Z23 - Encounter for immunization
[2024-08-02 12:32] VITALS: BP 118/88; PULSE 86; O2SAT 96; BMI 43.4
== END 2024-08-02 14:34 | disposition home or self-care (01) ==
PROVIDERS: PCP Internal Medicine; Visit Provider Internal Medicine
DX: Z23 Encounter for immunization (principal)

== ENCOUNTER → 2024-08-02 12:28 | Outpatient (BNVA) | payer BC, SELFPAY | PROVIDERS: PCP Internal Medicine; Visit Provider Internal Medicine | DX: Z00.01 Encounter for general adult medical examination with abnormal findings (principal); Z23 Encounter for immunization; E11.9 Type 2 diabetes mellitus without complications; E78.2 Mixed hyperlipidemia; E66.01 Morbid (severe) obesity due to excess calories; Z68.41 Body mass index [BMI] 40.0-44.9, adult; E03.9 Hypothyroidism, unspecified; Z87.898 Personal history of other specified conditions; Z79.899 Other long term (current) drug therapy | CPT/HCPCS: 90471; 90656; 96127 ==

== ENCOUNTER 2024-08-12 15:48 | Outpatient (REF) | payer BC, SELFPAY | END 2024-08-12 15:49 | disposition home or self-care (01) | LOC: HO.MAMMO 15:48 | PROVIDERS: PCP Internal Medicine; Visit Provider Internal Medicine | DX: Z12.31 Encounter for screening mammogram for malignant neoplasm of breast (principal) | CPT/HCPCS: 77063; 77067 ==

== ENCOUNTER → 2024-08-12 16:00 | Outpatient (BNV) | payer BC, SELFPAY | PROVIDERS: PCP Internal Medicine; Visit Provider Internal Medicine | DX: Z12.31 Encounter for screening mammogram for malignant neoplasm of breast (principal) | CPT/HCPCS: 77063; 77067 ==

== ENCOUNTER 2024-09-05 07:33 | Outpatient (AMB) | payer BC, SELFPAY ==
[2024-09-05 07:49] VITALS: BP 110/74; BMI 43.4
--- NOTE | 2024-09-05 07:49 | MHC.OFFVIS ---
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 No complaints. The patient had a Mirena IUD inserted for years ago Last Pap/HPV was negative in 05/01 Last Mammogram was BI-RADS 1 in 08/06 Last Colonoscopy was done in 03/04, the recommendation was to repeat in 10 years [facility] Medical History Diabetes mellitus, without long-term current use of insulin Rhinitis Mixed dyslipidemia Impaired fasting glucose Encounter for well woman exam with routine gynecological exam Rosacea Morbid obesity Hypothyroidism (acquired) GERD (gastroesophageal reflux disease) Surgical History Hx of colonoscopy Hx of endoscopy Family History Mother Diabetes Paternal Grandfather Brain cancer Paternal Grandmother Lung cancer Son Asthma Social History Housing: House Alcohol intake: current Patient Tobacco Use Status: Former Tobacco user Tobacco use type: Cigarette e-Cigarette/Vaping Use: Never Used service: No Current occupational status: employed Sexual orientation: Straight/Heterosexual Gender identity: Female Cognitive needs: No Hearing needs: No Vision needs: No Female Reproductive History Menstrual Age of Menarche: 12 control method: progestin IUCD Date of last pap smear: 04/20/20 Date of Mammogram: 08/12/24 Review of Systems Const All systems reviewed & are unremarkable except as noted in HPI and below Card Reports as per HPI Resp Reports as per HPI GI Reports as per HPI and Reports no additional complaints Reports as per HPI Physical Exam Vital Signs: Last Vital Signs BP 110/74 09/05/24 07:49 BMI result Body Mass Index 43.4 Const General: cooperative, healthy appearing and comfortable Chest Chest palpation & inspection: normal inspection of the chest and normal palpation of entire chest wall Breast/axilla inspection: normal inspection of the breasts and normal inspection of the axillae Breast/axilla palpation: normal palpation of the breasts, normal palpation of the axillae and no axillary lymphadenopathy Resp Effort & Inspection: normal respiratory effort Auscultation: clear to auscultation bilaterally Percussion: percussion normal Cardio Palpation: normal PMI Rate: regular rate Rhythm: regular rhythm Heart sounds: no murmurs and no rubs Peripheral pulses: Peripheral pulses 2+ throughout GI Inspection: Yes normal to inspection Palpation (GI): Soft to palpation, nontender, no guarding, not rigid and No hepatosplenomegaly present Percussion: Yes normal to percussion Auscultation: normal bowel sounds Rectal Exam - Female: deferred General: Yes bladder normal to palpation External Female Exam: No lesion Speculum Exam - Vagina: normal appearance of the vagina, normal palpation, normal vaginal discharge and not erythematous Speculum Exam - Cervix: normal appearance of the cervix, normal palpation and Other cervical findings present (IUD string in place) Bimanual exam- vagina & uterus: normal bimanual exam, normal palpation, uterine size normal, bladder normal to palpation, consistency normal and normal palpation Bimanual Exam- Adnexa, other: normal adnexae, no masses and no tenderness Assessment & Plan Assessment & Plan (1) Well woman exam: Code(s): Z01.419 - Encounter for gynecological examination (general) (routine) without abnormal findings Category: Medical Plan: Co testing done. Counseled the patient about the recommended dietary allowance of 1200 mg of Calcium & 600 IU of vitamin D. Instructions given the patient to schedule next screening Mammogram in 08/07. The patient was instructed to perform monthly self-breast exams and schedule annual exam in a year. All questions answered and the patient verbalized understanding. (2) IUD check up: Code(s): Z30.431 - Encounter for routine checking of intrauterine contraceptive device Category: Medical Plan: Discussed with the patient the average age of menopause being 52, recommended IUD removal. The patient would like to schedule it in 4 weeks. Instructions given the patient to schedule IUD removal within 4 weeks. All questions answered, the patient verbalized understanding Orders: Orders HPV High risk Today Z01.419 - Encounter for gynecological examination (general) (routine) without abnormal findings Pap Smear Today Z01.419 - Encounter for gynecological examination (general) (routine) without abnormal findings Coding Level of Care Code Est Pt Prev Care 40-64y(62171) Diagnoses Well woman exam Z01.419 IUD check up Z30.431
== END 2024-09-05 08:43 | disposition home or self-care (01) ==
PROVIDERS: PCP Internal Medicine; Visit Provider Obstetrics & Gynecology
DX: Z01.419 Encounter for gynecological examination (general) (routine) without abnormal findings (principal); Z30.431 Encounter for routine checking of intrauterine contraceptive device
CPT/HCPCS: 99396; 99459

== ENCOUNTER 2024-09-05 07:33 | Outpatient (REF) | payer BC, SELFPAY ==
[2024-09-13 10:31] LABS: HPV Genotype 16 Negative (Negative); HPV Genotype 18 Negative (Negative); HPV High Risk Negative (Negative)
== END 2024-09-05 07:34 | disposition home or self-care (01) ==
LOC: HO.LNP 07:33
PROVIDERS: PCP Internal Medicine; Visit Provider Obstetrics & Gynecology
DX: Z01.419 Encounter for gynecological examination (general) (routine) without abnormal findings (principal); Z97.5 Presence of (intrauterine) contraceptive device
CPT/HCPCS: 87626; 88175

== ENCOUNTER 2024-10-12 07:37 | Outpatient (AMB) | payer BC, SELFPAY ==
--- NOTE | 2024-10-12 07:43 | A.OFFVIS_ITS ---
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 Information Interpreted: non-clinical & clinical Medical Transcription Supervisor: Medical Transcription Supervisor Present (Robyn BYNUM) Accompanied by: Self / Same As Patient Allergies penicillin V Allergy (Intermediate, Verified 10/12/24 07:46) hives Sulfa (Sulfonamide Antibiotics) Allergy (Intermediate, Verified 10/12/24 07:46) hives Post menopausal: Yes HPI Comments Details: Presenting for Mirena IUD removal [facility] Medical History Diabetes mellitus, without long-term current use of insulin Rhinitis Mixed dyslipidemia Impaired fasting glucose Encounter for well woman exam with routine gynecological exam Rosacea Morbid obesity Hypothyroidism (acquired) GERD (gastroesophageal reflux disease) Surgical History Hx of colonoscopy Hx of endoscopy Family History Mother Diabetes Paternal Grandfather Brain cancer Paternal Grandmother Lung cancer Son Asthma Social History Housing: House Alcohol intake: current Patient Tobacco Use Status: Former Tobacco user Tobacco use type: Cigarette e-Cigarette/Vaping Use: Never Used service: No Current occupational status: employed Sexual orientation: Straight/Heterosexual Gender identity: Female Cognitive needs: No Hearing needs: No Vision needs: No Female Reproductive History Menstrual Age of Menarche: 12 Review of Systems Const All systems reviewed & are unremarkable except as noted in HPI and below Physical Exam Vital Signs: BMI result Body Mass Index 43.4 General: Yes no CVA tenderness External Female Exam: normal external appearance and normal appearance of the u rethra Speculum Exam - Vagina: normal appearance of the vagina, normal palpation, no lesions and no masses Speculum Exam - Cervix: normal appearance of the cervix, normal palpation, no lesions, no masses, nontender and Other cervical findings present (IUD string seen) Bimanual exam- vagina & uterus: normal bimanual exam, normal palpation, uterine size normal, normal palpation, uterine shape normal, No Cervical tenderness present and non-tender Bimanual Exam- Adnexa, other: normal adnexae Back/Spine/Pelvis Back: no CVA tenderness Office Procedures IUD Insert/Removal Details Details: Counseling/Consent: After discussing with the patient the risks of the procedure including bleeding, infection, scar tissue formation, , possible injury to blood vessels or nerves, chronic arm pain, blood transfusion, and irregular unpredictable bleeding Alternative options were discussed with the patient including but not limited: Do nothing. The patient signed the consent and agreed with the plan; all questions answered. Urine test was done in the office and was negative Preop dx: Requesting IUD removal Op: IUD removal Post op dx: same EBL= 10 cc Procedure: The patient was put in the dorsal lithotomy position a speculum was inserted in the vagina the IUD thread identified. Using a Sarah clamp the thread was grasped and the IUD pulled out with no complications. The patient tolerated the procedure well and was advised to use a different method for contraception. Discharge instructions: Instructions were given to the pt to call if temp>100.4, abdominal pain heavy vaginal bleeding, n/v occur. The patient verbalized understanding and all questions answered. This note was generated with a voice recognition program. Some errors may have been overlooked during the review of this note. Sometimes these errors may affect the content or meaning of a given sentence. [id number] Removal Procedure code (CPT) selection complete Assessment & Plan Assessment & Plan (1) Hot flashes: Code(s): R23.2 - [place]ushing Category: Medical Plan: Day 7 FSH/LH ordered, instructions given the patient to schedule a 2 week follow-up appointment (2) Encounter for IUD removal: Code(s): Z30.432 - Encounter for removal of intrauterine contraceptive device Category: Medical Plan: Mirena IUD removed, see procedure note Orders: Orders Follicle Stimulating Hormone Today R23.2 - [place] Lutenizing Hormone Today R23.2 - [place] Coding Level of Care Code Est Pt Level 3 (94164) Procedure Only Diagnoses Hot flashes R23.2 Encounter for IUD removal Z30.432 CPT Codes Details - CPT: 06119-BBZ Removal ([id number])
[2024-10-12 07:45] VITALS: BMI 43.4
== END 2024-10-12 07:52 | disposition home or self-care (01) ==
LOC: HO.HWS 07:37
PROVIDERS: PCP Internal Medicine; Visit Provider Obstetrics & Gynecology
DX: Z30.432 Encounter for removal of intrauterine contraceptive device (principal)
CPT/HCPCS: 58301

== ENCOUNTER → 2024-10-12 07:37 | Outpatient (BNVA) | payer BC, SELFPAY | PROVIDERS: PCP Internal Medicine; Visit Provider Obstetrics & Gynecology | DX: Z30.432 Encounter for removal of intrauterine contraceptive device (principal); R23.2 Flushing | CPT/HCPCS: 58301 ==

== ENCOUNTER 2024-10-27 07:43 | Outpatient (REF) | payer BC, SELFPAY ==
[2024-10-27 09:06] LABS: Estimated Average Glucose 134 mg/dL; Hemoglobin A1C 154.9202 umol/L; Hemoglobin A1c % 6.3 % (<6.0); Total Hemoglobin (HGBA1C) 3454.0087 umol/L
[2024-10-27 09:26] LABS: Alanine Aminotransferase 23 U/L (0-31); Anion Gap 15 (12-20); Aspartate Amino Transferase 26 U/L (5-31); Blood Urea Nitrogen 10 mg/dL (9-16); Calcium 9.7 mg/dL (8.4-10.2); Carbon Dioxide 23 mmol/L (22-29); Chloride 108 mmol/L (96-108); Cholesterol 146 mg/dL (<200); Estimated Glomerular Filt Rate > 60; Glucose Fasting 114 mg/dL (60-99); HDL Cholesterol 35 mg/dL (>40); LDL Cholesterol Calculated 83 mg/dL (<100); Potassium 3.7 mmol/L (3.3-5.1); Sodium 142 mmol/L (135-145); Triglycerides 141 mg/dL (<150)
[2024-10-27 09:31] LABS: Free T4 (Free Thyroxine) 1.23 ng/dL (0.71-1.85); Thyroid Stimulating Hormone 0.03 uIU/mL (0.32-4.0)
[2024-10-27 09:31] LABS: Creatinine Urine 26.14 mg/dL; Microalbumin Urine < 5.0 mg/L
[2024-10-28 04:33] LABS: Follicle Stimulating Hormone 66.3 mIU/mL; Lutenizing Hormone 26.2 mIU/mL
== END 2024-10-27 07:44 | disposition home or self-care (01) ==
LOC: HO.LAB 07:43
PROVIDERS: Absent Provider Internal Medicine; PCP Internal Medicine; Visit Provider Obstetrics & Gynecology
DX: E11.9 Type 2 diabetes mellitus without complications (principal); E78.2 Mixed hyperlipidemia; E66.01 Morbid (severe) obesity due to excess calories; E03.9 Hypothyroidism, unspecified; R23.2 Flushing
CPT/HCPCS: 36415; 80048; 80061; 82043; 82570; 83001; 83002; 83036; 84439; 84443; 84450; 84460

== ENCOUNTER 2024-11-02 08:01 | Outpatient (AMB) | payer BC, SELFPAY ==
--- NOTE | 2024-11-02 08:01 | MHC.OFFVIS ---
Intake Visit Reasons: Labs results Allergies penicillin V Allergy (Intermediate, Verified 10/12/24 07:46) hives Sulfa (Sulfonamide Antibiotics) Allergy (Intermediate, Verified 10/12/24 07:46) hives HPI Comments Details: The patient is schedule telehealth visit for follow-up after IUD removal. Doing well with no complaints. FSH/LH was 66.3/26.2 TSH 0.03 PFSH Medical History Diabetes mellitus, without long-term current use of insulin Rhinitis Mixed dyslipidemia Impaired fasting glucose Encounter for well woman exam with routine gynecological exam Rosacea Morbid obesity Hypothyroidism (acquired) GERD (gastroesophageal reflux disease) Surgical History Hx of colonoscopy Hx of endoscopy Family History Mother Diabetes Paternal Grandfather Brain cancer Paternal Grandmother Lung cancer Son Asthma Social History Housing: House Alcohol intake: current Patient Tobacco Use Status: Former Tobacco user Tobacco use type: Cigarette e-Cigarette/Vaping Use: Never Used service: No Current occupational status: employed Sexual orientation: Straight/Heterosexual Gender identity: Female Cognitive needs: No Hearing needs: No Vision needs: No Female Reproductive History Menstrual Age of Menarche: 12 Review of Systems Const All systems reviewed & are unremarkable except as noted in HPI and below Reports as per HPI and Reports no additional complaints GI Reports no additional complaints Reports no additional complaints Telehealth Telehealth Telehealth Platform: Telephone Location of provider rendering services: practice address Location of patient: address on file Patient Identification confirmed using: Name, : Yes Telehealth method: video Patient verbally consented to treatment: Yes Patient verbally consented to billing insurance company: Yes Patient informed of any privacy concerns related to visit: Yes Minutes spent on Phone/Video with Pt.: 3 Assessment & Plan Assessment & Plan (1) Menopausal state: Code(s): N95.1 - Menopausal and female climacteric states Category: Medical Plan: Discussed with the patient the results of elevated FSH LH in the menopausal range. Instructions given the patient to call in case of any vaginal bleeding. All questions answered, the patient verbalized understanding (2) Low TSH level: Code(s): R79.89 - Other specified abnormal findings of blood chemistry Category: Medical Plan: Discussed with the patient the low TSH level, recommended the patient to contact her PCP for further management, the patient has stated that she has an appointment with her PCP tomorrow. All questions answered, the patient verbalized understanding. I spent a total of 20 minutes reviewing the chart, talking to the patient via video and documenting in the medical record. Coding Level of Care Code Tele Est Pt Level 3 (83811) Diagnoses Menopausal state N95.1 Low TSH level R79.89
== END 2024-11-02 08:13 | disposition home or self-care (01) ==
LOC: HO.HWS 08:01
PROVIDERS: PCP Internal Medicine; Visit Provider Obstetrics & Gynecology
DX: N95.1 Menopausal and female climacteric states (principal); R79.89 Other specified abnormal findings of blood chemistry
CPT/HCPCS: 99213

== ENCOUNTER → 2024-11-02 08:01 | Outpatient (BNVA) | payer BC, SELFPAY | PROVIDERS: PCP Internal Medicine; Visit Provider Obstetrics & Gynecology ==

== ENCOUNTER 2024-11-03 13:27 | Outpatient (AMB) | payer BC, SELFPAY ==
[2024-11-03 13:37] VITALS: BP 100/74; PULSE 99; RESP 16; TEMP 36.9; O2SAT 97; BMI 40.2
--- NOTE | 2024-11-03 13:37 | MHC.PC.OV ---
Vital Signs 11/03/24 13:37 Height 4 ft 11 in Weight 199 lb BMI 40.2 BP 100/74 Blood Pressure Location Rt brachial Position Sitting Respiration 16 Pulse 99 Pulse Source Pulse Oximeter Temp 98.5 F Temp Source Oral Pulse Oximetry (%) 97 Oxygen Delivery Method Room Air Intake Visit Reasons: 3m follow up Intake Note: Pt is here today for her 3mo. f/u Allergies penicillin V Allergy (Intermediate, Verified 11/03/24 14:11) hives Sulfa (Sulfonamide Antibiotics) Allergy (Intermediate, Verified 11/03/24 14:11) hives Medication List - Last Reconciled 11/03/24 by Lizeth Andrew MD cholecalciferol (vitamin D3) 600 units PO DAILY lactobacillus combination no.4 (Probiotic) 3,000 mmu cells PO DAILY levothyroxine 100 mcg PO QAM loratadine (Claritin) 10 mg PO DAILY metformin ER 500 mg PO QPM warobswt-crj-lsbo-FA-vit K-lut 8 mg iron-400 mcg-50 mcg (Multivitamin Women 50 Plus) 1 tab PO DAILY omeprazole 20 mg PO DAILY scopolamine base 1 patch transdermal Q3D PRN simvastatin 40 mg PO BEDTIME Tobacco use date assessed: 11/03/24 Dental Screening Dental Screen Date: 11/03/24 Did you have a dental visit in the last 12 months?: Yes Did you have a dental problem in the last 6 months where you did not have access to dental care?: No Was dental information given to patient?: Patient has dentist HPI 3m follow up HPI Details 53-year-old lady with diabetes mellitus, hyperlipidemia and hypothyroidism, here today for her follow-up. She has been started on metformin ER 500 mg at night on last visit 3 months ago, has been compliant with healthy eating habits and has been exercising regularly. She has lost approximately 16 lb since last visit, feels better, with latest hemoglobin A1c now down to 6.3% and fasting lipids are within normal limits, and has negative microalbuminuria . Has been tolerating metformin well with no side effects reported. [facility] Medical History Diabetes mellitus, without long-term current use of insulin Rhinitis Mixed dyslipidemia Impaired fasting glucose Encounter for well woman exam with routine gynecological exam Rosacea Morbid obesity Hypothyroidism (acquired) GERD (gastroesophageal reflux disease) Surgical History Hx of colonoscopy Hx of endoscopy Family History Mother Diabetes Paternal Grandfather Brain cancer Paternal Grandmother Lung cancer Son Asthma Social History Housing: House Alcohol intake: current Patient Tobacco Use Status: Former Tobacco user Tobacco use type: Cigarette e-Cigarette/Vaping Use: Never Used service: No Current occupational status: employed Sexual orientation: Straight/Heterosexual Gender identity: Female Cognitive needs: No Hearing needs: No Vision needs: No Female Reproductive History Menstrual Age of Menarche: 12 Questionnaire PHQ-9 Over the last 2 weeks, how often have you been bothered by any of the following problems? Depression Screening Interpretation: Negative Depression Screening Done: Yes Source: Developed by Drs. Stanislav Rodriguez, Em Figueroa, Moreno Sawant and colleagues, with an educational letty from [employer]. Thrive Questionnaire Date Thrive assessed: 07/26/24 I am a: Patient What is your living situation today?: I have a steady place to live Within the past 12 months, did the food you bought not last and you didn't have the money to get more?: Never true Within the past 12 months, did you worry whether your food would run out before you got money to buy more?: Never true Do you have trouble paying for medicines?: No Do you have trouble getting transportation to medical appointments?: No Do you have trouble paying your heating and electricity bill?: No Do you have trouble taking care of your child, family member or friend?: No Do you have trouble with day-to-day activities such as bathing, preparing meals, shopping, managing finances, etc.?: No Are you currently unemployed and looking for a job?: No Are you interested in more education?: No Please select the resources that you would like help with: None Currently or been in a relationship where the following occur: No concerns reported THRIVE Score: 0 REYNALDO-7 AMB Questionnaire REYNALDO-7 Date REYNALDO - 7 assessed: 08/02/24 Source: Developed by Em Del RioW. Henry, Moreno Sawant and colleagues, with an educational letty from [employer]. Review of Systems Const All systems reviewed & are unremarkable except as noted in HPI and below Reports as per HPI and Reports no additional complaints Eyes Reports no additional complaints ENT Reports no additional complaints Card Reports no additional complaints Resp Reports no additional complaints GI Reports no additional complaints Reports no additional complaints Musc Reports no additional complaints Neuro Reports no additional complaints Endo Reports no additional complaints Physical exam (Primary Care) Vital Signs: Last Vital Signs Temp 98.5 F 11/03/24 13:37 Pulse 99 11/03/24 13:37 Resp 16 11/03/24 13:37 BP 100/74 11/03/24 13:37 Pulse Ox 97 11/03/24 13:37 Oxygen Delivery Method Room Air 11/03/24 13:37 BMI result Body Mass Index 40.2 BMI Assessment/Plan discussion: High BMI High, discussed plan: lifestyle, weight reduction, dietary and physical activity Tobacco/Smoking Status: Tobacco use Status Tobacco use date assessed 11/03/24 11/03/24 13:48 Patient Tobacco Use Status Former Tobacco user 11/03/24 13:39 Tobacco use type Cigarette 11/03/24 13:39 e-Cigarette/Vaping Use Never Used 11/03/24 13:39 Depression Screening Interpretation: Negative Thrive Assessment: Date of Thrive Assessment Date Thrive assessed 07/26/24 11/03/24 13:39 Currently or been in a relationship where the following occur: No concerns reported Const General: comfortable and no acute distress Nutritional Appearance: obese morbidly obese Orientation/consciousness: patient oriented x3 HENMT Other: Moist oral mucosa, normal oropharynx, no nasal discharge Eyes General: appearance normal, both eyes and all related structures Neck Other: Supple, no lymphadenopathy, thyroid gland nonpalpable Chest Other: Pendulous breasts, no mass palpated , no nipple discharge Resp Effort & Inspection: normal respiratory effort and able to speak in complete sentences Auscultation: clear to auscultation bilaterally Cardio Other: S1-S2 present regular rate and rhythm GI Palpation (GI): Soft to palpation, nontender, no guarding and no masses Auscultation: normal bowel sounds General: Yes no CVA tenderness Back/Spine/Pelvis Back: no CVA tenderness and No back tenderness Skin General skin exam: no rashes or lesions noted Neuro General: patient oriented x3, gait normal, moves all extremities, Normal light touch and pain sensation, no focal motor deficits and CN's II-XI intact bilaterally Extrem General: Yes full ROM, Yes no joint enlargement, Yes no pedal edema, Yes no calf tenderness and Yes normal gait Psych Appearance: grossly normal and well kempt Mental Status: mental status grossly normal Speech and movement: Normal speech and movement present Affect: normal affect Attitude: cooperative Thought process: Normal thought process present Results Reviewed Results Reviewed: Laboratory Tests 10/27/24 10/27/24 08:05 08:12 Estimat Average Glucose 134 Hemoglobin A1c % 6.3 H Urine Creatinine 26.14 Urine Microalbumin < 5.0 Microalb/Creat Ratio TNP rajan: Gayle Brownlee Age/Sex: 53/F : 1970 Unit#: [id number] Attend Dr: Klaus Schneider MD Re10/27/24 Status: DEP [facility]F [facility] Disch: SPEC : [id number] ALEX: 10/27/24 STATUS: COMP REQ : [id number] RECD: 10/27/[address]: Lizeth Andrew MD COMP: 10/27/24 ENTERED: 10/27/[address]: Klaus Schneider MD ORDERED: Met Prof Fast, AST, ALT, Lipid Panel, Free T4, TSH Test Result Flag Reference Sodium 142 135-145 mmol/L Potassium 3.7 3.3-5.1 mmol/L CL 108 96-108 mmol/L CO2 23 22-29 mmol/L Gap 15 12-20 BUN 10 9-16 mg/dL Creat 0.59 0.5-1.4 mg/dL eGFR > 60 Chronic Kidney Disease: Estimated GFR < 60 mL/min/1.73m2 Severe Kidney Disease: Estimated GFR < 15 mL/min/1.73m2 FBS 114 H 60-99 mg/dL A fasting glucose from 100-125 mg/dl is considered impaired (pre-diabetes). CA 9.7 # 8.4-10.2 mg/dL AST (GOT) 26 5-31 U/L ALT (GPT) 23 0-31 U/L Triglyceride 141 <150 mg/dL Desirable Triglyceride: less than 150 mg/dL Borderline High Triglyceride 150-199 mg/dL High Triglyceride: 200-499 mg/dL Very High Triglyceride: greater than or equal to 5OO mg/dL Cholesterol 146 <200 mg/dL Desirable Cholesterol: less than 200 mg/dL Borderline High Cholesterol: 200-239 mg/dL High Cholesterol: greater than 239 mg/dL LDL Calculated 83 <100 mg/dL Desirable LDL: less than 100 mg/dL Near Optimal/Above Optimal LDL: 110-129 mg/dL Borderline High LDL: 130-159 mg/dL High LDL: 160-189 mg/dL Very High LDL: greater than or equal to 190 mg/dL HDL 35 L >40 mg/dL Desirable HDL: greater than 40 mg/dL Note: This HDL assay may give artificially low results in patients with liver disease. Free T4 1.23 0.71-1.85 ng/dL TSH 3rd Gen. 0.03 L 0.32-4.0 uIU/mL TSH 3rd Generation ([facility]) Coding Level of Care Code Est Pt Level 4 (47652) Complex EM visit Add On G2211 Diagnoses Hypothyroidism (acquired) E03.9 Morbid obesity E66.01 Mixed dyslipidemia E78.2 Diabetes mellitus, without long-term current use of insulin E11.9 Assessment & Plan Assessment & Plan (1) Hypothyroidism (acquired): Code(s): E03.9 - Hypothyroidism, unspecified Category: Medical Plan: Latest TSH still mildly suppressed by the free T4 is within normal limits, patient states that she has been feeling well on current dose of levothyroxine, will continue and repeat another TSH and free T4 in February 2025 prior to next (2) Morbid obesity: Code(s): E66.01 - Morbid (severe) obesity due to excess calories Category: Medical Plan: Continue adherence to healthy eating habits and regular exercise, has lost approximately 16 lb in last 3 months (3) Mixed dyslipidemia: Code(s): E78.2 - Mixed hyperlipidemia Category: Medical Plan: Reviewed recent fasting lipid profile with patient with triglycerides, LDL cholesterol all within normal limits . Continue simvastatin 40 mg at bedtime , in addition to adherence to low-cholesterol diet and regular exercise, at least 30 minutes 3 to 4 times a week. Advised patient to make healthy food choices, eat more fruits, vegetables, whole grains, wild caught fish and low-fat dairy. Limit amount of meat and fried or fatty food products, as well as processed foods and fast foods. Follow-up scheduled with repeat fasting lipid panel in February 2025 (4) Diabetes mellitus, without long-term current use of insulin: Code(s): E11.9 - Type 2 diabetes mellitus without complications Category: Medical Plan: Diabetes mellitus well controlled, with hemoglobin A1c now at 6.3%, will continue on metformin ER 500 mg 1 tablet at night with supper. Continue with adherence to healthy eating habits and regular exercise. See her back for follow-up in February 2025. Orders: Orders Free T4 (Free Thyroxine) 02/10/25 E03.9 - Hypothyroidism, unspecified, E11.9 - Type 2 diabetes mellitus without complications, E66.01 - Morbid (severe) obesity due to excess calories, E78.2 - Mixed hyperlipidemia Hemoglobin A1c 02/10/25 E03.9 - Hypothyroidism, unspecified, E11.9 - Type 2 diabetes mellitus without complications, E66.01 - Morbid (severe) obesity due to excess calories, E78.2 - Mixed hyperlipidemia Alanine Aminotransferase 02/10/25 E03.9 - Hypothyroidism, unspecified, E11.9 - Type 2 diabetes mellitus without complications, E66.01 - Morbid (severe) obesity due to excess calories, E78.2 - Mixed hyperlipidemia Thyroid Stimulating Hormone 02/10/25 E03.9 - Hypothyroidism, unspecified, E11.9 - Type 2 diabetes mellitus without complications, E66.01 - Morbid (severe) obesity due to excess calories, E78.2 - Mixed hyperlipidemia Basic Metabolic Panel Fasting 02/10/25 E03.9 - Hypothyroidism, unspecified, E11.9 - Type 2 diabetes mellitus without complications, E66.01 - Morbid (severe) obesity due to excess calories, E78.2 - Mixed hyperlipidemia Lipid Panel 02/10/25 E03.9 - Hypothyroidism, unspecified, E11.9 - Type 2 diabetes mellitus without complications, E66.01 - Morbid (severe) obesity due to excess calories, E78.2 - Mixed hyperlipidemia Aspartate Amino Transferase 02/10/25 E03.9 - Hypothyroidism, unspecified, E11.9 - Type 2 diabetes mellitus without complications, E66.01 - Morbid (severe) obesity due to excess calories, E78.2 - Mixed hyperlipidemia
== END 2024-11-03 14:06 | disposition home or self-care (01) ==
LOC: HO.HMCC 13:27
PROVIDERS: PCP Internal Medicine; Visit Provider Internal Medicine
DX: E11.9 Type 2 diabetes mellitus without complications (principal); E66.01 Morbid (severe) obesity due to excess calories; Z68.41 Body mass index [BMI] 40.0-44.9, adult; E03.9 Hypothyroidism, unspecified; E78.2 Mixed hyperlipidemia

== ENCOUNTER → 2024-11-03 13:27 | Outpatient (BNVA) | payer BC, SELFPAY | PROVIDERS: PCP Internal Medicine; Visit Provider Internal Medicine | DX: Z13.89 Encounter for screening for other disorder (principal) ==

== ENCOUNTER 2025-05-20 07:32 | Outpatient (REF) | payer BC, SELFPAY ==
--- OUTSIDE RECORDS SUMMARY | 2025-05-20 07:35 | XMS_ITS | Patient Health Record ---
Author Organization [facility] Address [address] [place] [address] Care Team Providers Care Adolescent Specialist Name Role Phone Stanislav Zuniga Abimbola [phone] Reason For Referral No Information Plan Of Treatment No Information
[2025-05-20 09:59] LABS: Alanine Aminotransferase 26 U/L (0-31); Anion Gap 13 (12-20); Aspartate Amino Transferase 30 U/L (5-31); Blood Urea Nitrogen 10 mg/dL (9-16); Calcium 9.8 mg/dL (8.4-10.2); Carbon Dioxide 25 mmol/L (22-29); Chloride 108 mmol/L (96-108); Cholesterol 182 mg/dL (<200); Estimated Glomerular Filt Rate > 60; HDL Cholesterol 38 mg/dL (>40); Potassium 4.1 mmol/L (3.3-5.1); Sodium 142 mmol/L (135-145); Triglycerides 169 mg/dL (<150)
[2025-05-20 10:13] LABS: Free T4 (Free Thyroxine) 1.42 ng/dL (0.71-1.85); Thyroid Stimulating Hormone 0.01 uIU/mL (0.32-4.0)
== END 2025-05-20 07:33 | disposition home or self-care (01) ==
LOC: HO.LAB 07:32
PROVIDERS: PCP Internal Medicine; Visit Provider Internal Medicine
DX: E11.9 Type 2 diabetes mellitus without complications (principal); E78.2 Mixed hyperlipidemia; E66.01 Morbid (severe) obesity due to excess calories; E03.9 Hypothyroidism, unspecified
CPT/HCPCS: 36415; 80048; 80061; 83036; 84439; 84443; 84450; 84460

== ENCOUNTER 2025-05-25 08:11 | Outpatient (AMB) | payer BC, SELFPAY ==
[2025-05-25 08:34] VITALS: BP 122/78; PULSE 95; RESP 16; TEMP 36.8; O2SAT 61; BMI 39.2
--- NOTE | 2025-05-25 08:34 | A.OFFPC_ITS ---
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 f/u Manager Technical Support Required: No Allergies penicillin V Allergy (Intermediate, Verified 05/25/25 09:09) hives Sulfa (Sulfonamide Antibiotics) Allergy (Intermediate, Verified 05/25/25 09:09) hives Medication List - Last Reconciled 05/25/25 by Lizeth Andrew MD cholecalciferol (vitamin D3) 600 units PO DAILY lactobacillus combination no.4 (Probiotic) 3,000 mmu cells PO DAILY levothyroxine 100 mcg PO QAM loratadine (Claritin) 10 mg PO DAILY metformin ER 500 mg PO QPM bsqqtkll-cmn-jitw-FA-vit K-lut 8 mg iron-400 mcg-50 mcg (Multivitamin Women 50 Plus) 1 tab PO DAILY omeprazole 20 mg PO DAILY scopolamine base 1 patch transdermal Q3D PRN simvastatin 40 mg PO BEDTIME Tobacco use date assessed: 05/25/25 Dental Screening Dental Screen Date: 05/25/25 Did you have a dental visit in the last 12 months?: Yes Did you have a dental problem in the last 6 months where you did not have access to dental care?: No Was dental information given to patient?: Patient has dentist HPI 6m follow up RE HPI Details 54 year-old lady with past medical histo ry of diabetes mellitus, hyperlipidemia and hypothyroidism, here today for her follow-up. She is currently on metformin ER 500 mg at night and on levothyroxine 100 mcg daily as well as simvastatin 40 mg at bedtime, has been been eating a lot more shellfish lately, but has been exercising regularly. Latest fasting labs showed hemoglobin A1c at 6.1%, but higher triglycerides and LDL cholesterol as compared to last check. Urine microalbumin is negative. Up-to-date with her diabetes retinopathy screening, sees Dr. Azul . Flu vaccine given today, already received her pneumonia vaccine on previous visit Has been feeling well, with no other complaints at present time [facility] Medical History Diabetes mellitus, without long-term current use of insulin Rhinitis Mixed dyslipidemia Impaired fasting glucose Encounter for well woman exam with routine gynecological exam Rosacea Morbid obesity Hypothyroidism (acquired) GERD (gastroesophageal reflux disease) Surgical History Hx of colonoscopy Hx of endoscopy Family History Mother Diabetes Paternal Grandfather Brain cancer Paternal Grandmother Lung cancer Son Asthma Social History Housing: House Alcohol intake: current Patient Tobacco Use Status: Former Tobacco user Tobacco use type: Cigarette e-Cigarette/Vaping Use: Never Used service: No Current occupational status: employed Sexual orientation: Straight/Heterosexual Gender identity: Female Cognitive needs: No Hearing needs: No Vision needs: No Female Reproductive History Menstrual Age of Menarche: 12 Questionnaire PHQ-9 Over the last 2 weeks, how often have you been bothered by any of the following problems? 1. Little interest or pleasure in doing things: not at all 2. Feeling down, depressed, or hopeless: not at all 3. Trouble falling or staying asleep, or sleeping too much: not at all 4. Feeling tired or having little energy: not at all 5. Poor appetite or overeating: not at all 6. Feeling bad about yourself - or that you are a failure or have let yourself or your family down: not at all 7. Trouble concentrating on things, such as reading the newspaper or watching television: not at all 8. Moving or speaking so slowly that other people could have noticed. Or the opposite - being so fidgety or restless that you have been moving around a lot more than usual: not at all 9. Thoughts that you would be better off or of hurting yourself in some way: not at all Total score: 0 Depression Screening Interpretation: Negative Depression Screening Done: Yes Source: Developed by Drs. Stanislav Rodriguez, Em Figueroa, Moreno Sawant and colleagues, with an educational letty from [employer]. Thrive Questionnaire Date Thrive assessed: 07/26/24 I am a: Patient What is your living situation today?: I have a steady place to live Within the past 12 months, did the food you bought not last and you didn't have the money to get more?: Never true Within the past 12 months, did you worry whether your food would run out before you got money to buy more?: Never true Do you have trouble paying for medicines?: No Do you have trouble getting transportation to medical appointments?: No Do you have trouble paying your heating and electricity bill?: No Do you have trouble taking care of your child, family member or friend?: No Do you have trouble with day-to-day activities such as bathing, preparing meals, shopping, managing finances, etc.?: No Are you currently unemployed and looking for a job?: No Are you interested in more education?: No Please select the resources that you would like help with: None Currently or been in a relationship where the following occur: No concerns reported THRIVE Score: 0 REYNALDO-7 AMB Questionnaire REYNALDO-7 Date REYNALDO - 7 assessed: 08/02/24 Feeling nervous, anxious, or on edge: 0 = Not at all Not being able to stop or control worryin = Not at all Worrying too much about different things: 0 = Not at all Trouble relaxin = Not at all Being so restless that it is hard to sit still: 0 = Not at all Becoming easily annoyed or irritable: 0 = Not at all Feeling afraid as if something awful might happen: 0 = Not at all Total REYNALDO-7 score (0-4 normal; 5-9 mild; 10-14 moderate; 15-21 severe): 0 Source: Developed by Drs. Stanislav Rodriguez, Em Figueroa, Moreno Sawant and colleagues, with an educational letty from [employer]. Review of Systems Const Reports no additional complaints Eyes Details: Up-to-date with her diabetes retinopathy screening, sees Dr. Azul Reports no additional complaints ENT Reports no additional complaints Card Reports no additional complaints Resp Reports no additional complaints GI Reports no additional complaints Reports no additional complaints Musc Reports no additional complaints Skin/Breast Denies breast pain, Denies breast mass and Denies rash Neuro Reports no additional complaints Psych Reports no additional complaints Endo Reports no additional complaints Abundio/Lymph Reports no additional complaints Aller/Immun Reports no additional complaints Physical exam (Primary Care) Vital Signs: Last Vital Signs Temp 98.2 F 05/25/25 08:34 Pulse 95 05/25/25 08:34 Resp 16 05/25/25 08:34 BP 122/78 05/25/25 08:34 Pulse Ox 61 L 05/25/25 08:34 Oxygen Delivery Method Room Air 05/25/25 08:34 BMI result Body Mass Index 39.2 BMI Assessment/Plan discussion: High BMI High, discussed plan: lifestyle, weight reduction, dietary and physical activity Tobacco/Smoking Status: Tobacco use Status Tobacco use date assessed 05/25/25 05/25/25 08:37 Patient Tobacco Use Status Former Tobacco user 05/25/25 08:37 Tobacco use type Cigarette 05/25/25 08:37 e-Cigarette/Vaping Use Never Used 05/25/25 08:37 PHQ-9: PHQ-9 Score PHQ-9: Total score 0 05/25/25 09:14 Depression Screening Interpretation: Negative Thrive Assessment: Date of Thrive Assessment Date Thrive assessed 07/26/24 05/25/25 08:37 Currently or been in a relationship where the following occur: No concerns reported Const General: comfortable and no acute distress Nutritional Appearance: obese morbidly obese Orientation/consciousness: patient oriented x3 HENMT Other: Moist oral mucosa, normal oropharynx, no nasal discharge Eyes General: appearance normal, both eyes and all related structures Neck Other: Supple, no lymphadenopathy, thyroid gland nonpalpable Chest Other: Pendulous breasts, no mass palpated , no nipple discharge Resp Effort & Inspection: normal respiratory effort and able to speak in complete sentences Auscultation: clear to auscultation bilaterally Cardio Other: S1-S2 present regular rate and rhythm GI Palpation (GI): Soft to palpation, nontender, no guarding and no masses Auscultation: normal bowel sounds Skin General skin exam: no rashes or lesions noted Neuro General: patient oriented x3, gait normal, moves all extremities, Normal light touch and pain sensation, no focal motor deficits and CN's II-XI intact bilaterally Extrem General: Yes full ROM, Yes no joint enlargement, Yes no pedal edema, Yes no calf tenderness and Yes normal gait Psych Appearance: grossly normal and well kempt Mental Status: mental status grossly normal Speech and movement: Normal speech and movement present Affect: normal affect Office Procedures Flu Questionnaire Does the patient have a severe egg allergy?: No Does the patient have severe life threatening allergies?: No Does the patient have a fever or illness today?: No Has the patient ever had Guillain-[place] Syndrome?: No Has the patient ever had any past reaction to a flu shot?: No Immunizations Fluarix [id number] (PF) 45 mcg (15 mcg x 3)/0.5 mL IM syringe Performing Provider: Lizeth Andrew MD Performing Location: [facility] Administered by: Coty Kruse CMA on 05/25/25 08:58 Dose Route Admin Location Dispensed Lot Number Expiration Date [facility] Corn Cutter 0.5 mL IM Left Deltoid 0.5 mL [id number] 01/09/26 [id number] SendUs VIS Given Date VIS Provided VIS Publication Date 05/25/25 Single Vaccine 24 Eligibility Eligibility Date Funding Source Not [facility] Eligible 05/25/25 Private Results Reviewed Results Reviewed: Name: Gayle Brownlee Age/Sex: 54/F : 1970 Unit#: [id number] Attend Dr: Lizeth Andrew MD Re05/20/25 Status: DEP [facility] Dis[facility]: SPEC : [id number] ALEX: 05/20/25 STATUS: COMP REQ : [id number] RECD: 05/20/[address]: Lizeth Andrew MD COMP: 05/20/25-1013 ENTERED: 05/20/25-[address]: ORDERED: Met Prof Fast, AST, ALT, Lipid Panel, Free T4, TSH Test Result Flag Reference Sodium 142 135-145 mmol/L Potassium 4.1 3.3-5.1 mmol/L CL 108 96-108 mmol/L CO2 25 22-29 mmol/L Gap 13 12-20 BUN 10 9-16 mg/dL Creat 0.59 0.5-1.4 mg/dL eGFR > 60 Chronic Kidney Disease: Estimated GFR < 60 mL/min/1.73m2 Severe Kidney Disease: Estimated GFR < 15 mL/min/1.73m2 FBS 106 H 60-99 mg/dL A fasting glucose from 100-125 mg/dl is considered impaired (pre-diabetes). CA 9.8 8.4-10.2 mg/dL AST (GOT) 30 5-31 U/L ALT (GPT) 26 0-31 U/L Triglyceride 169 H <150 mg/dL Desirable Triglyceride: less than 150 mg/dL Borderline High Triglyceride 150-199 mg/dL High Triglyceride: 200-499 mg/dL Very High Triglyceride: greater than or equal to 5OO mg/dL Cholesterol 182 <200 mg/dL Desirable Cholesterol: less than 200 mg/dL Borderline High Cholesterol: 200-239 mg/dL High Cholesterol: greater than 239 mg/dL LDL Calculated 111 H <100 mg/dL Desirable LDL: less than 100 mg/dL Near Optimal/Above Optimal LDL: 110-129 mg/dL Borderline High LDL: 130-159 mg/dL High LDL: 160-189 mg/dL Very High LDL: greater than or equal to 190 mg/dL HDL 38 L >40 mg/dL Desirable HDL: greater than 40 mg/dL Note: This HDL assay may give artificially low results in patients with liver disease. Free T4 1.42 0.71-1.85 ng/dL TSH 3rd Gen. 0.01 L 0.32-4.0 uIU/mL TSH 3rd Generation ([facility]) Laboratory Tests 10/27/24 05/20/25 08:05 07:59 Estimat Average Glucose 128 Hemoglobin A1c % 6.1 H Urine Creatinine 26.14 Urine Microalbumin < 5.0 Microalb/Creat Ratio TNP Coding Level of Care Code Est Pt Level 4 (55177) Complex EM visit Add On G2211 Diagnoses Mixed dyslipidemia E78.2 Diabetes mellitus, without long-term current use of insulin E11.9 Hypothyroidism (acquired) E03.9 Morbid obesity E66.01 Assessment & Plan Assessment & Plan (1) Mixed dyslipidemia: Code(s): E78.2 - Mixed hyperlipidemia Category: Medical Plan: Discuss recent fasting lipid results with higher triglycerides and LDL cholesterol as compared to last check. Advised to cut back on eating a lot of s hellfish in processed foods, will continue on simvastatin 40 mg daily. Repeat another fasting lipid panel in September 2025 (2) Diabetes mellitus, without long-term current use of insulin: Code(s): E11.9 - Type 2 diabetes mellitus without complications Category: Medical Plan: Recent lab results reviewed with patient, with sugar and hemoglobin A1c stable and at goal continue metformin ER 500 mg at night with supper. Continue to check fasting blood sugar at home, maintain log and bring to next appointment for review. Reinforced diabetic diet and regular exercise with patient. She is up-to-date with yearly diabetes retinopathy screening. Patient advised to inspect feet daily, for any signs of injury, callus or infection. Compliance with diet and regular exercise again stressed. Blood pressure goal is less than 130/80, goal LDL is less than 100 and goal hemoglobin A1c is less than 7% follow-up appointment made in--September 2025, after fasting labs done. Flu vaccine given today (3) Hypothyroidism (acquired): Code(s): E03.9 - Hypothyroidism, unspecified Category: Medical Plan: Feels well on current dose of levothyroxine , will continue at 100 mcg daily. Repeat another thyroid level in September 2025 (4) Morbid obesity: Code(s): E66.01 - Morbid (severe) obesity due to excess calories Category: Medical Plan: Recommended focusing on improving health instead of dieting. Mediterranean diet is a healthy diet that helps, limit food high in fat, sugar, and calories. Eat slowly, pay attention to portion sizes, plan your meals ahead of time, continue with regular physical activity, at least 150 minutes of moderate intensity exercise, or 90 minutes per week of vigorous exercise. Keeping a food diary, tracking what you eat and your physical activity can help assess what improvements you can make. Orders: Orders Influenza [id number] Immunization Today Z23 - Encounter for immunization Lipid Panel 09/16/25 E03.9 - Hypothyroidism, unspecified, E11.9 - Type 2 diabetes mellitus without complications, E66.01 - Morbid (severe) obesity due to excess calories, E78.2 - Mixed hyperlipidemia Microalbumin, Random (w Creat) 09/16/25 E03.9 - Hypothyroidism, unspecified, E11.9 - Type 2 diabetes mellitus without complications, E66.01 - Morbid (severe) obesity due to excess calories, E78.2 - Mixed hyperlipidemia Aspartate Amino Transferase 09/16/25 E03.9 - Hypothyroidism, unspecified, E11.9 - Type 2 diabetes mellitus without complications, E66.01 - Morbid (severe) obesity due to excess calories, E78.2 - Mixed hyperlipidemia Hemoglobin A1c 09/16/25 E03.9 - Hypothyroidism, unspecified, E11.9 - Type 2 diabetes mellitus without complications, E66.01 - Morbid (severe) obesity due to excess calories, E78.2 - Mixed hyperlipidemia Free T4 (Free Thyroxine) 09/16/25 E03.9 - Hypothyroidism, unspecified, E11.9 - Type 2 diabetes mellitus without complications, E66.01 - Morbid (severe) obesity due to excess calories, E78.2 - Mixed hyperlipidemia Basic Metabolic Panel Fasting 09/16/25 E03.9 - Hypothyroidism, unspecified, E11.9 - Type 2 diabetes mellitus without complications, E66.01 - Morbid (severe) obesity due to excess calories, E78.2 - Mixed hyperlipidemia Alanine Aminotransferase 09/16/25 E03.9 - Hypothyroidism, unspecified, E11.9 - Type 2 diabetes mellitus without complications, E66.01 - Morbid (severe) obesity due to excess calories, E78.2 - Mixed hyperlipidemia Thyroid Stimulating Hormone 09/16/25 E03.9 - Hypothyroidism, unspecified, E11.9 - Type 2 diabetes mellitus without complications, E66.01 - Morbid (severe) obesity due to excess calories, E78.2 - Mixed hyperlipidemia Vitamin D 25-OH Total 09/16/25 E03.9 - Hypothyroidism, unspecified, E11.9 - Type 2 diabetes mellitus without complications, E66.01 - Morbid (severe) obesity due to excess calories, E78.2 - Mixed hyperlipidemia
== END 2025-05-25 09:48 | disposition home or self-care (01) ==
LOC: HO.HMCC 08:12
PROVIDERS: PCP Internal Medicine; Visit Provider Internal Medicine
DX: E11.9 Type 2 diabetes mellitus without complications (principal); E66.01 Morbid (severe) obesity due to excess calories; Z68.39 Body mass index [BMI] 39.0-39.9, adult; E78.2 Mixed hyperlipidemia; E03.9 Hypothyroidism, unspecified; Z23 Encounter for immunization

== ENCOUNTER → 2025-05-25 08:11 | Outpatient (BNVA) | payer BC, SELFPAY | PROVIDERS: PCP Internal Medicine; Visit Provider Internal Medicine | DX: E11.9 Type 2 diabetes mellitus without complications (principal); E78.2 Mixed hyperlipidemia; E03.9 Hypothyroidism, unspecified; E66.01 Morbid (severe) obesity due to excess calories; Z23 Encounter for immunization; Z68.39 Body mass index [BMI] 39.0-39.9, adult; Z79.84 Long term (current) use of oral hypoglycemic drugs | CPT/HCPCS: 90471; 90656; 96127 ==